=== PATIENT | female | born 1930 | race Caucasian/White ===

== ENCOUNTER → 2018-09-12 | Outpatient (CLI) | payer MEDICARE, OTHER ==
--- NOTE | 2018-09-12 09:55 | BD ---
EXAMINATION TYPE: Axial Bone Density DATE OF EXAM: 09/12/2018 COMPARISON: 10/04/2015 CLINICAL HISTORY: Postmenopausal female. Osteoporosis screening. Height: 57 IN Weight: 181 LBS FRAX RISK QUESTIONS: Secondary Osteoporosis: 2. Hyperthyroidism: YES RISK FACTORS HISTORY OF: Surgery to Hip(KHOA): When: APPROX AGE 58 Active: LIMITED Diet low in dairy products/other sources of calcium: YES Postmenopausal woman: AGE 55 Lost more than 2 inches in height since high school: YES 5" MEDICATIONS: Thyroid Medications: YES Which medication: Synthroid How Lon+ YEARS Additional Medications: SYNTHROID Additional History: BREAST CANCER EXAM MEASUREMENTS: Bone mineral densitometry was performed using the [employer] System. Bone mineral density as measured about the Lumbar spine is: ----- L1-L4(G/cm2): 1.309 T Score Values are as follows: ----- L2: 1.8 ----- L3: 1.5 ----- L4: -0.7 ----- L1-L4: 1.1 Bone mineral density has: Increased 2.4% since study of: 10/04/2015 Bone mineral density about the L Wrist (g/cm2): 0.461 T Score values are as follows: -----Dist. R+U: -4.7 -----Prox. 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 There is increased fracture risk and therapy is usually indicated based on age. Re-Screen 1-2 years. NOTE: T-SCORE=SD OF THE YOUNG ADULT MEAN.
--- NOTE | 2018-09-13 11:14 | MM ---
Reason for exam: additional evaluation requested from prior study. Last mammogram was performed 2 years and 7 months ago. History: Patient is postmenopausal and has history of breast cancer at age 84. Family history of premenopausal breast cancer in mother and premenopausal breast cancer in daughter. Lumpectomy of the right breast, July 19, 2014. Malignant US biopsy breast VAD RT of the right breast, July 10, 2014. Radiation therapy of the right breast, 2014. Benign stereotactic core biopsy of the right breast, September 22, 2002. Core biopsy of the right breast. Excisional biopsy of the left breast. Taking antineoplastic beginning at age 84. Physical Findings: Nurse did not find any significant physical abnormalities on exam. MG 3D Diag Mammo W/Cad KHOA Bilateral CC and MLO view(s) were taken. Prior study comparison: February 25, 2016, bilateral MG 3d diag mammo w/cad KHOA. August 19, 2015, right breast MG 3d diag mammo w/cad RT. The breast tissue is heterogeneously dense. This may lower the sensitivity of mammography. Benign appearing bilateral calcifications. Post therapy change on the right. No significant new findings when compared with previous films. These results were verbally communicated with the patient and result sheet given to the patient on 09/12/18. ASSESSMENT: Benign, BI-RAD 2 RECOMMENDATION: Follow-up diagnostic mammogram of both breasts in 1 year.
== END ==
LOC: RADMAMWWP 07:52
PROVIDERS: ATTEND Internal Medicine Hematology & Oncology
DX: Z08 Encounter for follow-up examination after completed treatment for malignant neoplasm (principal); M81.0 Age-related osteoporosis without current pathological fracture; N95.1 Menopausal and female climacteric states; Z85.3 Personal history of malignant neoplasm of breast
CPT/HCPCS: 77080; 77066; G0279; 77062

== ENCOUNTER 2018-11-12 13:01 | Emergency (ER) | payer MEDICARE, OTHER ==
[2018-11-12 13:30] VITALS: BP 125/68; PULSE 65; RESP 18; TEMP 97.7
--- NOTE | 2018-11-12 14:27 | ED ---
General Adult HPI - General Chief complaint: Wound/Laceration Stated complaint: wound on lt leg Time Seen by Provider: 11/12/18 14:05 Source: patient Mode of arrival: ambulatory Limitations: no limitations - History of Present Illness Initial comments: Patient is an 88-year-old female presenting to the emergency department with her daughter for a chief complaint of a bleeding from her leg. Patient reports she noticed bleeding from one of her varicose veins on her left leg earlier today. Patient reports the bleeding has since stopped. Patient is not on blood thinners. Patient denies any trauma to the region. Patient does not wear any compression sex. Patient denies any pain or limited range of motion. Patient denies any edema, erythema or skin discoloration. Patient denies taking any medication to alleviate the symptoms. - Related Data Home Medications Medication Instructions Recorded Confirmed Cholecalciferol [Vitamin D3 (25 1,000 unit PO DAILY@1200 07/18/14 07/19/14 Mcg = 1000 Iu)] Levothyroxine Sodium [Synthroid] 112 mcg PO DAILY 07/18/14 07/19/14 Previous Rx's Medication Instructions Recorded Acetaminophen with Codeine 1 each PO Q6H #20 tab 07/20/14 [Tylenol w/codeine #3] Allergies Allergy/AdvReac Type Severity Reaction Status Date / Time No Known Allergies Allergy Verified 07/19/14 16:11 Review of Systems ROS Statement: Those systems with pertinent positive or pertinent negative responses have been documented in the HPI. ROS Other: All systems not noted in ROS Statement are negative. Past Medical History Past Medical History: Cancer, Osteoarthritis (OA), Thyroid Disorder Additional Past Medical History / Comment(s): recent dx. breast cancer History of Any Multi-Drug Resistant Organisms: None Reported Past Surgical History: Joint Replacement Additional Past Surgical History / Comment(s): both hips replaced, cataract surg. Past Anesthesia/Blood Transfusion Reactions: No Reported Reaction Past Psychological History: No Psychological Hx Reported Smoking Status: Never smoker Past Alcohol Use History: None Reported Past Drug Use History: None Reported - Past Family History Daughter(s) Family Medical History: Cancer Mother Family Medical History: Cancer General Exam Limitations: no limitations General appearance: alert, in no apparent distress Head exam: Present: atraumatic, normocephalic, normal inspection Eye exam: Present: normal appearance, PERRL, EOMI Pupils: Present: normal accommodation ENT exam: Present: normal exam, mucous membranes moist, TM's normal bilaterally, normal external ear exam Neck exam: Present: normal inspection, full ROM Respiratory exam: Present: normal lung sounds bilaterally Cardiovascular Exam: Present: regular rate, normal rhythm, normal heart sounds Extremities exam: Present: full ROM. Absent: normal inspection (Bleeding varicose vein on the left leg), tenderness Back exam: Present: normal inspection, full ROM Neurological exam: Present: alert, oriented X3 Psychiatric exam: Present: normal affect, normal mood Skin exam: Present: warm, intact, normal color Course Vital Signs 11/12/18 13:25 Temperature 97.7 F Pulse Rate 65 Respiratory 18 Rate Blood Pressure 125/68 O2 Sat by Pulse 97 Oximetry Medical Decision Making - Medical Decision Making Patient is an 88-year-old female presenting to emergency Department with a chief complaint of bleeding on her leg. Based on physical examination the bleeding appears to be from a varicose vein. 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 Patient advised to keep legs elevated multiple times throughout the day for 10-15 minutes. Patient advised to wear compression stockings. Patient advised to follow-up with primary care. Strict return parameters were thoroughly discussed the patient was agreeable. Case discussed with physician. Disposition Clinical Impression: Bleeding from varicose veins of left lower extremity Disposition: HOME SELF-CARE Condition: Stable Instructions (If sedation given, give patient instructions): Venous Insufficiency (DC) Additional Instructions: Please follow up with primary care. Please apply warm compresses and wear compression stockings. Elevate your legs multiple times throughout the day. Please return to emergency department if symptoms worsen. Is patient prescribed a controlled substance at d/c from ED?: No Referrals: None,Stated [Primary Care Provider] - 1-2 days Time of Disposition: 14:26
== END 2018-11-12 14:34 | disposition home or self-care (01) ==
LOC: EC 13:01
DX: I83.892 Varicose veins of left lower extremity with other complications (principal); I83.91 Asymptomatic varicose veins of right lower extremity; E07.9 Disorder of thyroid, unspecified; Z79.890 Hormone replacement therapy; Z85.3 Personal history of malignant neoplasm of breast; Z96.643 Presence of artificial hip joint, bilateral
CPT/HCPCS: 99282

== ENCOUNTER 2019-01-21 18:52 | Observation (INO) | payer MEDICARE, OTHER ==
--- NOTE | 2019-01-21 19:20 | ED ---
General Adult HPI - General Chief complaint: Skin/Abscess/Foreign Body Stated complaint: Food stuck in throat Time Seen by Provider: 01/21/19 19:20 Source: patient, family Mode of arrival: wheelchair Limitations: physical limitation - History of Present Illness Initial comments: Denisha is a pleasant 68-year-old female who presents the emergency department today with concern that she has a piece of pork stuck in her throat. Patient states that she was having pork for supper between 6 and 6:30 PM, she states that she cut it up into small pieces but still feels that it is in her throat. She states she's tried drinking water with no relief. She cannot tolerate her own secretions this time. Patient states she's had similar events like this in the past always been able to pass it on her own she's never had to come the hospital she's never had endoscopy. - Related Data Home Medications Medication Instructions Recorded Confirmed Anastrozole 1 mg PO DAILY 01/21/19 01/21/19 Levothyroxine Sodium [Synthroid] 100 mcg PO DAILY 01/21/19 01/21/19 Allergies Allergy/AdvReac Type Severity Reaction Status Date / Time No Known Allergies Allergy Verified 01/21/19 20:38 Review of Systems ROS Statement: Those systems with pertinent positive or pertinent negative responses have been documented in the HPI. ROS Other: All systems not noted in ROS Statement are negative. Past Medical History Past Medical History: Cancer, Osteoarthritis (OA), Thyroid Disorder Additional Past Medical History / Comment(s): recent dx. breast cancer History of Any Multi-Drug Resistant Organisms: None Reported Past Surgical History: Joint Replacement Additional Past Surgical History / Comment(s): both hips replaced, cataract surg. Past Anesthesia/Blood Transfusion Reactions: No Reported Reaction Past Psychological History: No Psychological Hx Reported Smoking Status: Never smoker Past Alcohol Use History: None Reported Past Drug Use History: None Reported - Past Family History Daughter(s) Family Medical History: Cancer Mother Family Medical History: Cancer General Exam - General Exam Comments Initial Comments: Physical Exam GENERAL: Patient sitting up in bed spitting into a bowl. Appears uncomfortable Patient is well-developed and well-nourished HENT: Normocephalic, Atraumatic. EYES: PERRL, EOMI PULMONARY: Unlabored respirations. No audible rales rhonchi or wheezing was noted. CARDIOVASCULAR: There is a regular rate and rhythm without any murmurs gallops or rubs. ABDOMEN: Soft and nontender with normal bowel sounds. SKIN: Skin is clear with no lesions or rashes and otherwise unremarkable. : Deferred NEUROLOGIC: Patient is alert and oriented x3. Moving all extremities spontaneously MUSCULOSKELETAL: Normal extremities with adequate strength and full range of motion. No lower extremity swelling or edema. No calf tenderness. PSYCHIATRIC: Normal psychiatric evaluation. Limitations: physical limitation Course Vital Signs 01/21/19 01/21/19 19:11 22:52 Temperature 98.3 F 98 F Pulse Rate 71 75 Respiratory 18 18 Rate Blood Pressure 128/65 149/79 O2 Sat by Pulse 98 98 Oximetry Medical Decision Making - Medical Decision Making The patient was seen and evaluated history is obtained from patient and signed patient was eating pork when she felt like a piece got stuck in her throat, since that time she's not been able tolerate any oral intake, oral secretions She's been trying to support her for approximately 90 minutes prior to arrival but continues to spit out IV glucagon was given patient was encouraged to drink warm water with glucagon but was unable to tolerate it Patient care was discussed with GI is consultant Dr. Collazo who is unavailable for endoscopy tonight recommend supportive care will evaluate the patient morning She care was discussed the patient's primary care physician Dr. Zuñiga who agrees with plan for observation with evaluation by gastroenterology in the morning. Patient declined narcotic pain medication as well as Zofran and anxiolytics were ordered for comfort. Disposition Clinical Impression: Food impaction of esophagus Disposition: ADMITTED IP TO THIS HOSP Condition: Stable Referrals: Abdirahman Zuñiga MD [Primary Care Provider] - 1-2 days
[2019-01-21] MEDS ORDERED: GLUCAGON 1 MG/ML VIAL IVP STA (19:56)
[2019-01-21] MEDS: SODIUM CHLORIDE 0.9% 1,000 ML IV SCH (20:27)
[2019-01-21] MEDS ORDERED: MORPHINE SULFATE 4 MG/ML SYRINGE IVP STA (21:51)
[2019-01-21] MEDS ORDERED: SODIUM CHLORIDE 0.9% 1,000 ML IV SCH (22:00)
--- NOTE | 2019-01-21 22:05 | XR ---
EXAMINATION TYPE: XR chest 2V DATE OF EXAM: 01/21/2019 COMPARISON: NONE HISTORY: Difficulty swallowing TECHNIQUE: Frontal and lateral views of the chest are obtained. FINDINGS: There is some right middle lobe scarring and atelectasis. There is no heart failure. Heart size is normal. There is no pleural effusion. There are some ankylotic changes in the thoracic spine . IMPRESSION: Right middle lobe scarring and atelectasis. No heart failure.
[2019-01-21] MEDS ORDERED: ONDANSETRON 4 MG/2 ML VIAL IVP PRN (23:44)
[2019-01-21] MEDS ORDERED: LORazepam 2 MG/ML INJ IV PRN (23:44)
[2019-01-21] MEDS ORDERED: NALOXONE 0.4 MG/ML 1 ML VIAL IV PRN (23:44)
[2019-01-22] MEDS: SODIUM CHLORIDE 0.9% 1,000 ML IV SCH ×2 (05:50→16:42)
[2019-01-22] MEDS ORDERED: ACETAMINOPHEN TAB 325 MG TAB PO PRN (11:26)
--- NOTE | 2019-01-22 11:31 | P.HPIM ---
History of Present Illness H&P Date: 01/22/19 This is an 88-year-old female patient who presented with complaints of a piece of pork stuck in her throat. Patient reports that she was having dinner around 09[birth year]15/1929 when she had a piece of pork get stuck in her throat. Patient tried to drink water without any relief. Patient reports that is difficult breathing at that time. Patient reports that she still feels like there something in her throat but not having as much distress in breathing. Patient reports that she usually will have soft foods due to her dentures. Patient reports she's never had this issue before. Patient does have past medical history of breast cancer, hyperthyroidism and osteoarthritis. Patient does live independently. Patient's [id number] and son at bedside. Chest x-ray was completed showing right middle lobe scarring and atelectasis. No heart failure. GI services have been consulted. Planning EGD today. Patient denies chest pain. Patient denies nausea vomiting diarrhea. Patient denies any urinary burning or frequency. Review of Systems Please refer to HPI otherwise unremarkable Past Medical History Past Medical History: Cancer, Osteoarthritis (OA), Thyroid Disorder Additional Past Medical History / Comment(s): breast cancer History of Any Multi-Drug Resistant Organisms: None Reported Past Surgical History: Joint Replacement Additional Past Surgical History / Comment(s): both hips replaced, cataract surg. Past Anesthesia/Blood Transfusion Reactions: No Reported Reaction Past Psychological History: No Psychological Hx Reported Smoking Status: Never smoker Past Alcohol Use History: None Reported Past Drug Use History: None Reported - Past Family History Daughter(s) Family Medical History: Cancer Mother Family Medical History: Cancer Medications and Allergies Home Medications Medication Instructions Recorded Confirmed Type Anastrozole 1 mg PO DAILY 01/21/19 01/21/19 History Levothyroxine Sodium [Synthroid] 100 mcg PO DAILY 01/21/19 01/21/19 History Allergies Allergy/AdvReac Type Severity Reaction Status Date / Time No Known Allergies Allergy Verified 01/21/19 20:38 Physical Exam Vitals: Vital Signs Temp Pulse Pulse Resp BP BP Pulse Ox 01/22/19 09:42 98.4 F 85 16 134/64 96 01/22/19 05:32 98.4 F 85 16 134/64 96 01/22/19 00:35 97.9 F 81 16 151/71 97 01/22/19 00:30 81 16 01/21/19 22:52 98 F 75 18 149/79 98 01/21/19 19:11 98.3 F 71 18 128/65 98 Intake and Output 01/21/19 01/22/19 01/22/19 22:59 06:59 14:59 Other: # Voids 1 Weight 81.647 kg Head normocephalic Neck supple Lungs clear to auscultation bilaterally no wheezing or crackles Heart regular rate and rhythm S1-S2, no rub or gallop Abdomen is soft nontender nondistended positive bowel sounds no hepatosplenomegaly Extremities no edema Neuro alert and orientated to 3 Thrombosis Risk Factor Assmnt - Choose All That Apply Any of the Below Risk Factors Present?: Yes Each Factor Represents 1 point: Obesity (BMI >25) Other Risk Factors: Yes Each Risk Factor Represents 3 Points: Age 75 years or older Other congenital or acquired thrombophilia - If yes, enter type in comment: No Thrombosis Risk Factor Assessment Total Risk Factor Score: 4 Thrombosis Risk Factor Assessment Level: Moderate Risk Assessment and Plan Assessment: 1. Esophageal food bolus. GI services have been consulted. Planning EGD today. Chest is completed showing no acute pulmonary process. 2. History of breast cancer. Greater than 5 years ago. Patient is maintained on an anastrozole. 3. History of hypothyroidism. Patient obtained on Synthroid 4. Osteoarthritis with bilateral hip replacements DVT prophylaxis Protonix. GI prophylaxis heparin Time with Patient: Greater than 30 (Greater than 60% of the total time spent in counseling and coordination of care. I performed an examination of the patient and discussed their management with the Nurse Practitioner. I have reviewed the Nurse Practitioner's notes and agree with the documented findings and plan of care)
[2019-01-22 11:44] LABS: Albumin 3.3 g/dL (3.5-5.0); Calcium 8.2 mg/dL (8.4-10.2); Potassium 4.4 mmol/L (3.5-5.1); Total Protein 6.3 g/dL (6.3-8.2)
[2019-01-22 11:52] LABS: Basophils % (A) 0 %; Eosinophils % (A) 0 %; HCT 35.2 % (34.0-46.0); HGB 11.3 gm/dL (11.4-16.0); Lymphocytes # (A) 0.9 k/uL (1.0-4.8); Lymphocytes % (A) 9 %; MCH 30.2 pg (25.0-35.0); MCHC 32.1 g/dL (31.0-37.0); MCV 94.1 fL (80.0-100.0); Mean Platelet Volume 6.1; Monocytes # (A) 0.6 k/uL (0-1.0); Monocytes % (A) 6 %; Neutrophils # (A) 8.5 k/uL (1.3-7.7); Neutrophils % (A) 84 %; Platelet Count 150 k/uL (150-450); RBC 3.75 m/uL (3.80-5.40); RDW 13.1 % (11.5-15.5); WBC 10.1 k/uL (3.8-10.6)
[2019-01-22] MEDS ORDERED: PROPOFOL 10 MG/ML 20 ML VIAL IV ONE (12:36)
[2019-01-22] MEDS ORDERED: LACTATED RINGERS 1,000 ML IV ONE (12:43)
--- NOTE | 2019-01-22 12:54 | P.PCN ---
Date of Procedure: 01/22/19 Procedure(s) Performed: BRIEF HISTORY: Patient is a []-year-old, pleasant, white female, admitted hospital last night with acute food dysphagia. She is scheduled for an upper endoscopy with foreign body removal. PROCEDURE PERFORMED: Esophagogastroduodenoscopy with biopsy and foreign body removal. PREOPERATIVE DIAGNOSIS: Acute for dysphagia. IV sedation per anesthesia. PROCEDURE: After informed consent was obtained, the patient was brought into the endoscopy unit. IV sedation was administered by Anesthesia under continuous monitoring. Initially the Olympus GIF-140 video endoscope was inserted into the mouth. Esophagus intubated without any difficulty. It was gradually advanced into the distal esophagus and there was a food bolus impaction noted. Gently the scope was able to push the food bolus into the stomach and duodenum and carefully examined. The bulb and the second part of the duodenum appeared normal. The scope at this time was withdrawn to the stomach, adequately insufflated with air, and upon careful examination, mucosa of the antrum, body, cardia and the fundus appeared normal. The scope was then withdrawn into the esophagus. The GE junction was located at 37 cm from the incisors. Small sliding Hiatal hernia noted. There was long segment of Jiménez's esophagus extending from 30-37 cm from the incisors and multiple biopsies were done from this area to rule out dysplasia. There was esophageal suture identified at 30 cm from the incisors with some erosions identified consistent with severe reflux esophagitis. The rest of the esophagus appeared normal and the patient tolerated the procedure well. IMPRESSION: 1. Distal esophageal food impaction status post removal as described above. 2. 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 Small hiatal hernia. RECOMMENDATIONS: The findings of this examination were discussed with the patien t as well as her family. She'll be started on a soft diet. Prilosec 20 mg twice daily. Follow up in office in 2 weeks. Base of the symptoms she may need an elective EGD with dilation in the near future.
--- NOTE | 2019-01-22 18:01 | CONS ---
CONSULTATION DATE OF DICTATION: 01/22/2019. REASON FOR CONSULTATION: Acute food dysphagia. HISTORY OF PRESENT ILLNESS: The patient is a 68-year-old pleasant white female in the emergency room last night complaining of the piece of meat that was stuck in her throat since dinner last evening, the patient was able to handle her secretions except that she has been spitting out on off. She was admitted to the hospital overnight for observation. This morning, she feels somewhat better, but still unable to clear her secretions very well. She feels that her food is still stuck in her throat area. She never had these symptoms in the past. She has been having intermittent dysphagia to solids on and off and she slowly for the last 15 years. Never had any endoscopy intervention in the past. She denies any heartburn. Reports no odynophagia. PAST MEDICAL HISTORY: Significant for breast cancer diagnosed several years ago and hypothyroidism. MEDICATIONS: At home: and levothyroxine. ALLERGIES: None. SOCIAL HISTORY: No smoking. No alcohol use. FAMILY HISTORY: Unremarkable. PAST SURGICAL HISTORY: Breast lumpectomy, bilateral cataract surgery and both hips replacement. FAMILY HISTORY: Daughter has some kind of cancer. REVIEW OF SYSTEMS: CARDIOPULMONARY: No chest pain, shortness of breath. no dysuria or hematuria. MUSCULOSKELETAL unremarkable. SKIN unremarkable. ENDOCRINE unremarkable. PSYCHIATRIC unremarkable. NEUROLOGY unremarkable. ENT/vision unremarkable. CONSTITUTIONAL: No recent weight loss. No fever, chills, night sweats. PHYSICAL EXAMINATION: Blood pressure is 149/79, pulse rate 85, temperature 98.4. HEENT examination unremarkable. Conjunctivae pink. Sclerae anicteric. Oral cavity no lesions. NECK: No JVD or lymph node enlargement. CHEST was clear to auscultation. HEART: Regular rate and rhythm. ABDOMEN: Soft. Bowel sounds are positive. No organomegaly. EXTREMITIES: No pedal edema. SKIN no rashes. NEUROLOGIC: Alert and oriented x3. No focal deficits. LAB: No labs available at the time of dictation. IMPRESSION: 1. Acute food impaction. The patient ate pork for dinner last night and has a piece of meat bolus impacted in her esophagus. She was admitted to the hospital for observation. She feels better but not able to swallow her saliva well, but looks comfortable. Never had these symptoms in the past. However, she has been having intermittent dysphagia to solids with no endoscopy intervention needed in the past. 2. Hypothyroidism. RECOMMENDATIONS: We will proceed with an EGD this morning with possible dilation. I discussed with them the risks, benefits, and complications of the procedure and the patient and family are agreeable to it. Thank you for this consultation. JULES / IJN: [id number] /
[2019-01-22] MEDS: HEPARIN SODIUM,PORCINE 5,000 UNIT/ML 1 ML VIAL SQ SCH (21:21)
[2019-01-23 04:25] VITALS: BP 139/74; PULSE 65; RESP 16; TEMP 98.3
[2019-01-23] MEDS: SODIUM CHLORIDE 0.9% 1,000 ML IV SCH (06:15)
[2019-01-23] MEDS ORDERED: LEVOTHYROXINE 100 MCG TAB PO SCH (06:30)
[2019-01-23] MEDS ORDERED: PANTOPRAZOLE 40 MG TABLET PO SCH (07:30)
[2019-01-23 07:53] LABS: Basophils % (A) 0 %; Eosinophils # (A) 0.2 k/uL (0-0.7); Eosinophils % (A) 2 %; HCT 35.4 % (34.0-46.0); HGB 11.2 gm/dL (11.4-16.0); Hypochromasia Slight; Lymphocytes # (A) 2.1 k/uL (1.0-4.8); Lymphocytes % (A) 30 %; MCHC 31.6 g/dL (31.0-37.0); Mean Platelet Volume 6.2; Monocytes # (A) 0.3 k/uL (0-1.0); Monocytes % (A) 4 %; Neutrophils # (A) 4.3 k/uL (1.3-7.7); Neutrophils % (A) 62 %; Platelet Count 156 k/uL (150-450); RBC 3.73 m/uL (3.80-5.40); RDW 13.3 % (11.5-15.5); WBC 6.9 k/uL (3.8-10.6)
[2019-01-23 08:05] LABS: Albumin 3.4 g/dL (3.5-5.0); Potassium 4.4 mmol/L (3.5-5.1); Total Bilirubin 1.2 mg/dL (0.2-1.3); Total Protein 6.4 g/dL (6.3-8.2)
[2019-01-23] MEDS: HEPARIN SODIUM,PORCINE 5,000 UNIT/ML 1 ML VIAL SQ SCH (08:06)
[2019-01-23] MEDS ORDERED: ANASTROZOLE 1 MG TAB PO SCH (09:00)
--- NOTE | 2019-01-23 10:52 | P.DS ---
Providers Date of admission: 01/21/19 23:44 Expected date of discharge: 01/23/19 Attending physician: Abdirahman Zuñiga Consults: 01/21/19 23:44 Consult Physician Stat Consulting Provider: Shahla Collazo Consult Reason/Comments: esophageal food bolus Do you want consulting provider notified?: Already Contacted Primary care physician: Abdirahman Zara [facility] Course: Discharge diagnosis 1. Esophageal food bolus. GI services have been consulted. Planning EGD today. Chest is completed showing no acute pulmonary process. Status post EGD with Dr. Newton. Finding showing distal esophageal food impaction status post removal. Distal esophageal stricture, long segment Jiménez's esophagus small hiatal hernia. Per GI services continue Prilosec 20 mg twice daily and follow- up in office in 2 weeks. Patient may require an elective EGD with dilation in the future per GI services. 2. History of breast cancer. Greater than 5 years ago. Patient is maintained on an anastrozole. 3. History of hypothyroidism. Patient obtained on Synthroid 4. Osteoarthritis with bilateral hip replacements Hospital course This is an 88-year-old female patient who presented with complaints of a piece of pork stuck in her throat. Patient reports that she was having dinner around 09/15/1929 when she had a piece of pork get stuck in her throat. Patient tried to drink water without any relief. Patient reports that is difficult breathing at that time. Patient reports that she still feels like there something in her throat but not having as much distress in breathing. Patient reports that she usually will have soft foods due to her dentures. Patient reports she's never had this issue before. Patient does have past medical history of breast cancer, hyperthyroidism and osteoarthritis. Patient does live independently. Patient's [id number] and son at bedside. Chest x-ray was completed showing right middle lobe scarring and atelectasis. No heart failure. GI services have been consulted. Planning EGD today. Patient denies chest pain. Patient denies nausea vomiting diarrhea. Patient denies any urinary burning or frequency. On 01/23/2019 patient is alert and oriented 3. Patient has been afebrile. No signs of coughing. Patient has been tolerating diet and liquids without coughing. Patient feels much improved and ready to go home. Patient denies chest pain or shortness of breath. Patient denies nausea vomiting or diarrhea. Patient denies any urinary burning or frequency. I performed an examination of the patient and discussed their management with the Nurse Practitioner. I have reviewed the Nurse Practitioner's notes and agree with the documented findings and plan of care Patient Condition at Discharge: Stable Plan - Discharge Summary New Discharge Prescriptions: New Omeprazole [PriLOSEC] 20 mg PO AC-BID 30 Days #60 cap Continue Levothyroxine Sodium [Synthroid] 100 mcg PO DAILY Anastrozole 1 mg PO DAILY Discharge Medication List Anastrozole 1 mg PO DAILY 01/21/19 [History] Levothyroxine Sodium [Synthroid] 100 mcg PO DAILY 01/21/19 [History] Omeprazole [PriLOSEC] 20 mg PO AC-BID 30 Days #60 cap 01/23/19 [Rx] Follow up Appointment(s)/Referral(s): Abdirahman Zuñiga MD [Primary Care Provider] - 1-2 days Shahla Collazo MD [STAFF PHYSICIAN] - 1 Week Activity/Diet/Wound Care/Special Instructions: Activity as tolerated Regular diet soft foods chopped meats Discharge Disposition: HOME SELF-CARE
--- NOTE | 2019-01-23 14:34 | PN ---
PROGRESS NOTE DATE OF SERVICE: 01/23/2019 REQUESTING PHYSICIAN: Dr. Zuñiga. Patient is an 88-year-old pleasant white female admitted to the hospital yesterday for dysphagia and underwent an upper endoscopy that revealed an impaction in the distal esophagus that was removed. She was also noted to have severe reflux esophagitis, esophageal stricture, and Jiménez's esophagus that was biopsied. She is on Protonix 40 mg twice daily. She is doing much better today, able to tolerate soft diet well. She has been having intermittent dysphagia with solids on and off for the last 15 years' duration. PHYSICAL EXAMINATION: Appears comfortable, in no apparent distress. VITAL SIGNS: Stable, blood pressure is 139/74, pulse rate is 65, temperature 98. HEENT: Examination unremarkable, conjunctivae are pink. Sclerae nonicteric. Oral cavity no lesions. NECK: No JVD or lymph node enlargement. CHEST: Clear to auscultation. HEART: Regular rate and rhythm. ABDOMEN: Soft. Bowel sounds are positive. No organomegaly. EXTREMITIES: No pedal edema. SKIN: No rashes. NEUROLOGIC: Alert and oriented x3. No focal deficits. LABS: WBC 6.9, hemoglobin 11.2, platelets are normal. Basic metabolic panel showed BUN of 19 and creatinine 1.19. IMPRESSION: Intermittent dysphagia to solids of several years duration with an episode of acute food impaction, status post EGD with foreign body removal yesterday. She was noted to have a esophageal stricture/Jiménez's esophagus and severe reflux esophagitis on Protonix 40 mg twice daily, doing well RECOMMENDATION: 1. Continue with Protonix 40 mg twice daily. 2. Await biopsy results. 3. Follow up in the office in 2-3 weeks and based on her symptoms, will plan on upper endoscopy with possible dilation on an active basis. The plan was discussed with the patient. Thank you for this consultation. MMODL / IJN: [id number] /
== END 2019-01-23 13:20 | disposition home or self-care (01) ==
LOC: EC 18:52 → 3NMEDONC 23:44
PROVIDERS: ADMIT Internal Medicine; ATTEND Internal Medicine
DX: T18.128A Food in esophagus causing other injury, initial encounter (principal); K44.9 Diaphragmatic hernia without obstruction or gangrene; K22.70 Barrett's esophagus without dysplasia; K22.2 Esophageal obstruction; Z85.3 Personal history of malignant neoplasm of breast; E03.9 Hypothyroidism, unspecified; Z96.643 Presence of artificial hip joint, bilateral; M19.90 Unspecified osteoarthritis, unspecified site; K21.0 Gastro-esophageal reflux disease with esophagitis; Z79.811 Long term (current) use of aromatase inhibitors; Z79.890 Hormone replacement therapy; E66.9 Obesity, unspecified; Z68.35 Body mass index [BMI] 35.0-35.9, adult; Z80.9 Family history of malignant neoplasm, unspecified
CPT/HCPCS: 96361 ×2; 96372 ×2; 96374; 99284; 97161; 97166; 88305; 80053 ×2; 85025 ×2; 71046; 43239; 43247; G0378 ×3; J1610; J1644 ×2; S0170; J2704

== ENCOUNTER → 2019-10-09 | Outpatient (CLI) | payer MEDICARE, OTHER ==
--- NOTE | 2019-10-10 07:41 | MM ---
Reason for exam: additional evaluation requested from prior study. Last mammogram was performed 1 year and 1 month ago. History: Patient is postmenopausal and has history of breast cancer at age 84. Family history of premenopausal breast cancer in mother and premenopausal breast cancer in daughter. Lumpectomy of the right breast, July 19, 2014. Malignant US biopsy breast VAD RT of the right breast, July 10, 2014. Radiation therapy of the right breast, 2014. Benign stereotactic core biopsy of the right breast, September 22, 2002. Core biopsy of the right breast. Excisional biopsy of the left breast. Taking antineoplastic beginning at age 84. Physical Findings: Nurse did not find any significant physical abnormalities on exam. MG 3D Diag Mammo W/Cad KHOA Bilateral CC and MLO view(s) were taken. Prior study comparison: September 12, 2018, bilateral MG 3d diag mammo w/cad KHOA. February 25, 2016, bilateral MG 3d diag mammo w/cad KHOA. The breast tissue is heterogeneously dense. This may lower the sensitivity of mammography. Post surgical and post therapy changes right breast. Stable scatered groups of calcifications bilaterally. No significant new findings when compared with previous films. These results were verbally communicated with the patient and result sheet given to the patient on 10/09/19. ASSESSMENT: Benign, BI-RAD 2 RECOMMENDATION: Follow-up diagnostic mammogram of both breasts in 1 year.
== END | disposition home or self-care (01) ==
LOC: RADMAMWWP 13:26
PROVIDERS: ATTEND Internal Medicine Hematology & Oncology
DX: Z08 Encounter for follow-up examination after completed treatment for malignant neoplasm (principal); Z85.3 Personal history of malignant neoplasm of breast
CPT/HCPCS: 77066; G0279; 77062

== ENCOUNTER → 2020-09-17 | Outpatient (CLI) | payer MEDICARE, OTHER ==
--- NOTE | 2020-09-17 16:00 | BD ---
EXAMINATION TYPE: Axial Bone Density DATE OF EXAM: 09/17/2020 COMPARISON: NONE CLINICAL HISTORY: Height: 4 FT 9 IN Weight: 181 FRAX RISK QUESTIONS: Alcohol (3 or more units per day): NO Family History (Parent hip fracture): NO Glucocorticoids (More than 3mos): NO (Ex: prednisone, prednisolone, methylprednisolone, dexamethasone, and hydrocortisone). History of Fracture in Adulthood: NO Secondary Osteoporosis: 1. Type 1 Diabetes: NO 2. Hyperthyroidism: NO 3. Menopause before 45: NO 4. Malnutrition: NO 5. Chronic liver disease: NO Rheumatoid Arthritis: NO Current Tobacco Use: NO RISK FACTORS HISTORY OF: Surgery to Spine/Hip(right/left)/Wrist (right/left): KHOA HIP REPLACEMENT When: YEARS AGO Family History of Osteoporosis: NO Active: NO Diet low in dairy products/other sources of calcium: NO Postmenopausal woman: AGE 55 Take estrogen and/or progesterone medications: NO Lost more than 2 inches in height since high school: YES MEDICATIONS: Additional Medications: NONE Additional History: EXAM MEASUREMENTS: Bone mineral densitometry was performed using the Hadapt System. Bone mineral density as measured about the Lumbar spine is: ----- L1-L4(G/cm2): WASNT ABLE TO DO LUMBAR PTS KYPHOSIS WILL NOT ALLOW HER TO LAY FLAT Bone mineral density about the R Wrist (g/cm2): 0.493 T Score values are as follows: -----Dist. R+U: -3.5 -----Prox. R+U: -2.3 -----Radius total: -3.1 Bone mineral density has: DECREASED -11.8 % since study of: 2013 IMPRESSION: Osteoporosis (T Score less than -2.5). There is increased fracture risk and therapy is usually indicated based on age. Re-Screen 1-2 years. NOTE: T-SCORE=SD OF THE YOUNG ADULT MEAN.
== END | disposition home or self-care (01) ==
LOC: RADBDWWP 14:17
PROVIDERS: ATTEND Internal Medicine Hematology & Oncology
DX: Z13.820 Encounter for screening for osteoporosis (principal); M81.0 Age-related osteoporosis without current pathological fracture; Z78.0 Asymptomatic menopausal state
CPT/HCPCS: 77080

== ENCOUNTER → 2020-10-21 | Outpatient (CLI) | payer MEDICARE, OTHER ==
--- NOTE | 2020-10-22 10:03 | MM ---
Reason for exam: additional evaluation requested from prior study. Last mammogram was performed 1 year ago. History: Patient is postmenopausal and has history of breast cancer at age 84. Family history of premenopausal breast cancer in mother and premenopausal breast cancer in daughter. Lumpectomy of the right breast, July 19, 2014. Malignant US biopsy breast VAD RT of the right breast, July 10, 2014. Radiation therapy of the right breast, 2014. Benign stereotactic core biopsy of the right breast, September 22, 2002. Core biopsy of the right breast. Excisional biopsy of the left breast. Taking antineoplastic beginning at age 84. Physical Findings: Nurse did not find any significant physical abnormalities on exam. MG 3D Diag Mammo W/Cad KHOA Bilateral CC and MLO view(s) were taken. Prior study comparison: October 09, 2019, bilateral MG 3d diag mammo w/cad KHOA. September 12, 2018, bilateral MG 3d diag mammo w/cad KHOA. There are scattered fibroglandular densities. Right post operative and biopsy clip. No change. These results were verbally communicated with the patient and result sheet given to the patient on 10/21/20. ASSESSMENT: Benign, BI-RAD 2 RECOMMENDATION: Follow-up diagnostic mammogram of both breasts in 1 year.
== END | disposition home or self-care (01) ==
LOC: RADMAMWWP 14:04
PROVIDERS: ATTEND Internal Medicine Hematology & Oncology
DX: R92.8 Other abnormal and inconclusive findings on diagnostic imaging of breast (principal); Z78.0 Asymptomatic menopausal state; Z80.3 Family history of malignant neoplasm of breast
CPT/HCPCS: 77066; G0279; 77062

== ENCOUNTER 2021-09-06 15:08 | Inpatient (IN) | payer MEDICARE, OTHER ==
--- NOTE | 2021-09-06 16:36 | ED ---
General Adult HPI - General Chief complaint: Extremity Injury, Lower Stated complaint: Rt Leg Pain/Swelling Time Seen by Provider: 09/06/21 16:14 Source: patient Mode of arrival: ambulatory Limitations: no limitations - History of Present Illness Initial comments: Dictation was produced using [employer] dictation software. please excuse any grammatical, word or spelling errors. Chief Complaint: 89-year-old female with past medical history of breast cancer, thyroid disease presents to the emergency department for severe right lower ext remity pain History of Present Illness: Patient is a 11-year-old female she is accompanied by 3 of her 4 children. Her one daughter who is visiting from [place] reports that over the last 3 days she's been complaining of severe right lower extremity pain. Patient currently resides at a assisted living facility. It was recommended by sister living facility staff to have patient brought to the ER for evaluation. Patient is a poor historian. She does have report that she has pain in her right hip and right knee. She denies any trauma to the area. She does have history of joint arthroplasty to both hips. Patient does not have any history of cardiac issues. She has no known history of bradycardia. The ROS documented in this emergency department record has been reviewed and confirmed by me. Those systems with pertinent positive or negative responses have been documented in the HPI. All other systems are other negative and/or noncontributory. PHYSICAL EXAM: General Impression: Alert and oriented x3, acute distress secondary to pain HEENT: Normocephalic atraumatic, extra-ocular movements intact, pupils equal and reactive to light bilaterally, mucous membranes moist. Cardiovascular: Heart regular rate and rhythm Chest: Able to complete full sentences, no retractions, no tachypnea Abdomen: abdomen soft, non-tender, non-distended, no organomegaly Musculoskeletal: Pulses present and equal in all extremities, no peripheral edema Right lower extremity slightly larger in girth compared to the left lower extremity, there is no temperature differences with light touch, there are no skin changes. Patient complains of severe pain with any sort of manipulation to the right lower extremity. Her joints are not swollen or erythematous Motor: no focal deficits noted Neurological: CN II-XII grossly intact, no focal motor or sensory deficits noted Skin: Intact with no visualized rashes Psych: Normal affect and mood ED course: 89-year-old female presents emergency department for right lower extremity pain. Pain is severe. She does have some swelling to the right lower extremity compared to the left but she does not have any signs of ischemia. Vital signs upon arrival shows bradycardia with a heart rate of 41, rest of vital signs within acceptable limits. Children at the bedside report that patient does not have a history of bradycardia. EKG interpretation: Ventricular rate 48, A. fib with slow ventricular response, QS 90, QTc 412. no QTC prolongation, no ST or T-wave changes noted. EKG was compared to 07/19/2014 and found to be comparable. He does not appear to be any consistent clearly discernible P waves. Spoke with on-call sales and marketing assistant, Dr. Elder at 6:00 PM. Case is discussed in detail with the sales and marketing assistant didn't have any recommendations at this time given that she is not expressing any symptoms bradycardia. She is here today for leg pain. She denies any shortness of breath, lightheadedness. Her blood pressure pressure has been stable. Evaluation obtained. CBC unremarkable. Sodium is 1:30. Slightly elevated gorge al markers P TSH is 58.6. Troponin is 0.013. Mitral lites are within acceptable limits. Bilateral hip and pelvis x-ray shows no acute processes. Knee x-ray shows moderate osteoarthritis bilaterally. Venous Doppler study shows this but no DVT. Patient be admitted to [facility]. Patient was given atropine with slight improvement of her heart rate. - Related Data Home Medications Medication Instructions Recorded Confirmed Levothyroxine Sodium [Synthroid] 100 mcg PO DAILY 01/21/19 09/06/21 Acetaminophen [Tylenol] 650 mg PO Q6H PRN 09/06/21 09/06/21 Calcium Lactate 100mg 1 tab PO DAILY 09/06/21 09/06/21 Donepezil [Aricept] 5 mg PO DAILY 09/06/21 09/06/21 Furosemide [Lasix] 20 mg PO MOTH 09/06/21 09/06/21 Omeprazole 20 mg PO DAILY 09/06/21 09/06/21 Zinc Oxide [Desitin] 1 applic TOPICAL BID 09/06/21 09/06/21 Allergies Allergy/AdvReac Type Severity Reaction Status Date / Time No Known Allergies Allergy Verified 09/06/21 17:24 Review of Systems ROS Statement: Those systems with pertinent positive or pertinent negative responses have been documented in the HPI. ROS Other: All systems not noted in ROS Statement are negative. Past Medical History Past Medical History: Cancer, Osteoarthritis (OA), Thyroid Disorder Additional Past Medical History / Comment(s): breast cancer History of Any Multi-Drug Resistant Organisms: None Reported Past Surgical History: Joint Replacement Additional Past Surgical History / Comment(s): both hips replaced, cataract surg. Past Anesthesia/Blood Transfusion Reactions: No Reported Reaction Past Psychological History: No Psychological Hx Reported Smoking Status: Never smoker Past Alcohol Use History: None Reported Past Drug Use History: None Reported - Past Family History Daughter(s) Family Medical History: Cancer Mother Family Medical History: Cancer General Exam Limitations: no limitations Course Vital Signs 09/06/21 09/06/21 09/06/21 15:26 17:59 18:05 Temperature 97.8 F Pulse Rate 41 L 42 L 71 Respiratory 18 16 16 Rate Blood Pressure 122/58 130/71 O2 Sat by Pulse 98 99 100 Oximetry Medical Decision Making - Lab Data Result diagrams: 09/06/21 16:40 09/06/21 16:40 Lab Results 09/06/21 09/06/21 09/06/21 Range/Units 16:40 16:40 16:40 WBC 6.6 (3.8-10.6) k/uL RBC 4.29 (3.80-5.40) m/uL Hgb 12.7 (11.4-16.0) gm/dL Hct 40.8 (34.0-46.0) % MCV 94.9 (80.0-100.0) fL MCH 29.6 (25.0-35.0) pg MCHC 31.2 (31.0-37.0) g/dL RDW 12.9 (11.5-15.5) % Plt Count 161 (150-450) k/uL MPV 7.3 Neutrophils % 63 % Lymphocytes % 27 % Monocytes % 6 % Eosinophils % 2 % Basophils % 1 % Neutrophils # 4.2 (1.3-7.7) k/uL Lymphocytes # 1.8 (1.0-4.8) k/uL Monocytes # 0.4 (0-1.0) k/uL Eosinophils # 0.1 (0-0.7) k/uL Basophils # 0.0 (0-0.2) k/uL Sodium 130 L (137-145) mmol/L Potassium 4.9 (3.5-5.1) mmol/L Chloride 95 L (98-107) mmol/L Carbon Dioxide 24 (22-30) mmol/L Anion Gap 11 mmol/L BUN 24 H (7-17) mg/dL Creatinine 1.60 H (0.52-1.04) mg/dL Est GFR (CKD-EPI)AfAm 33 (>60 ml/min/1.73 sqM) Est GFR (CKD-EPI)NonAf 28 (>60 ml/min/1.73 sqM) Glucose 110 H (74-99) mg/dL Calcium 8.8 (8.4-10.2) mg/dL Magnesium 1.9 (1.6-2.3) mg/dL Troponin I 0.013 (0.000-0.034) ng/mL TSH 58.600 H (0.465-4.680) mIU/L Critical Care Time Critical Care Time: Yes Total Critical Care Time: 33 Disposition Clinical Impression: Bradycardia, Leg pain Disposition: ADMITTED IP TO THIS [facility] Condition: Serious Referrals: GARY BENNETT MD [Primary Care Provider] - 1-2 days Decision Time: 18:30
[2021-09-06 16:50] LABS: Basophils % (A) 1 %; Eosinophils # (A) 0.1 k/uL (0-0.7); Eosinophils % (A) 2 %; HCT 40.8 % (34.0-46.0); HGB 12.7 gm/dL (11.4-16.0); Lymphocytes # (A) 1.8 k/uL (1.0-4.8); Lymphocytes % (A) 27 %; MCH 29.6 pg (25.0-35.0); MCHC 31.2 g/dL (31.0-37.0); MCV 94.9 fL (80.0-100.0); Mean Platelet Volume 7.3; Monocytes # (A) 0.4 k/uL (0-1.0); Monocytes % (A) 6 %; Neutrophils # (A) 4.2 k/uL (1.3-7.7); Neutrophils % (A) 63 %; Platelet Count 161 k/uL (150-450); RBC 4.29 m/uL (3.80-5.40); RDW 12.9 % (11.5-15.5); WBC 6.6 k/uL (3.8-10.6)
[2021-09-06 17:06] LABS: Calcium 8.8 mg/dL (8.4-10.2); Magnesium 1.9 mg/dL (1.6-2.3); Potassium 4.9 mmol/L (3.5-5.1)
--- NOTE | 2021-09-06 17:24 | XR ---
EXAMINATION TYPE: XR Hip Bilateral and AP pelvis DATE OF EXAM: 09/06/2021 COMPARISON: NONE HISTORY: Leg pain TECHNIQUE: 5 views FINDINGS: The pelvic ring appears intact. There is bilateral hip prosthesis. Components appear intact . No acute fracture seen. Sacroiliac joints are intact. IMPRESSION: No acute abnormality of the pelvis and both hips.
--- NOTE | 2021-09-06 17:26 | XR ---
EXAMINATION TYPE: XR knee complete bilateral DATE OF EXAM: 09/06/2021 COMPARISON: NONE HISTORY: Pain TECHNIQUE: 6 views FINDINGS: There is moderately severe narrowing of the medial joint spaces of both knees. There is ext ensive spurring of the medial femoral and tibial condyles. There is spurring at the patellofemoral arnulfo ints bilaterally. No joint effusion. No fracture seen. IMPRESSION: Moderately severe bilateral osteoarthritis as above. No fracture.
[2021-09-06] MEDS ORDERED: MORPHINE SULFATE 4 MG/ML SYRINGE IV STA (17:30)
[2021-09-06] MEDS ORDERED: HYDROmorphone 0.5 MG/0.5 ML SYRINGE IVP STA (17:53)
[2021-09-06] MEDS ORDERED: ATROPINE SULFATE 0.1 MG/ML 10ML SYRINGE IV STA (17:56)
[2021-09-06] MEDS ORDERED: HEPARIN SODIUM 1,000 UN/ML (10ML VL) IV ONE (18:02)
[2021-09-06] MEDS ORDERED: HEPARIN SODIUM 1,000 UN/ML (10ML VL) IV PRN (18:02)
--- NOTE | 2021-09-06 18:14 | US ---
EXAMINATION TYPE: US venous doppler duplex LE RT DATE OF EXAM: 09/06/2021 5:56 PM COMPARISON: NONE CLINICAL HISTORY: leg pain. Right leg pain SIDE PERFORMED: Right TECHNIQUE: The lower extremity deep venous system is examined utilizing real time linear array sonog sridhar with graded compression, doppler sonography and color-flow sonography. VESSELS IMAGED: Common Femoral Vein Deep Femoral Vein Greater Saphenous Vein * Femoral Vein Popliteal Vein Small Saphenous Vein * Proximal Calf Veins (* superficial vessels) Right Leg: Negative for DVT, unable to visualize proximal calf veins due to edema- possible Smith's Cyst right pop fossa= 4.2 x 0.7 x 2.5 cm IMPRESSION: No sign of deep vein thrombosis in the right leg. Popliteal cyst noted.
[2021-09-06] MEDS ORDERED: HEPARIN SOD,PORK IN 0.45% NACL 25,000 UNIT in 0.45% NACL 1 250ML.BAG IV SCH (18:15)
[2021-09-06] MEDS ORDERED: ACETAMINOPHEN TAB 325 MG TAB PO PRN (18:27)
[2021-09-06] MEDS ORDERED: NALOXONE 0.4 MG/ML 1 ML VIAL IV PRN (18:27)
[2021-09-06] MEDS ORDERED: HYDROmorphone 0.5 MG/0.5 ML SYRINGE IVP PRN (18:27)
[2021-09-06] MEDS: SODIUM CHLORIDE 0.9% 1,000 ML IV SCH (19:14)
[2021-09-06] MEDS: LEVOTHYROXINE IVP 100 MCG/5 ML VIAL IV SCH (19:46)
--- NOTE | 2021-09-07 02:35 | P.HPIM ---
History of Present Illness H&P Date: 09/06/21 Chief Complaint: Right leg pain 89-year-old female with hypothyroid Patient is a resident of assisted living facility over the past few days she's been complaining to get that she's having right leg pain she was brought in today to the hospital for elevation she has some slight swelling of the right leg compared to the left. No history of trauma or fall. Patient has dementia and provides no meaningful history. History was obtained by talking to her daughter. At the ED Doppler of right lower extremity showed no acute DVT. However EKG showed the cardia and rate controlled A. fib. She was admitted admitted for cardiology evaluation otherwise patient doesn't provide any history Blood work showed hyponatremia stable chronic kidney disease Elevated TSH and free T4 is pending Review of Systems ROS unobtainable: due to mental status Past Medical History Past Medical History: Cancer, Dementia, Osteoarthritis (OA), Thyroid Disorder Additional Past Medical History / Comment(s): breast cancer History of Any Multi-Drug Resistant Organisms: None Reported Past Surgical History: Joint Replacement Additional Past Surgical History / Comment(s): both hips replaced, cataract surg. Past Anesthesia/Blood Transfusion Reactions: No Reported Reaction Past Psychological History: No Psychological Hx Reported Smoking Status: Never smoker Past Alcohol Use History: None Reported Past Drug Use History: None Reported - Past Family History Daughter(s) Family Medical History: Cancer Mother Family Medical History: Cancer Medications and Allergies Home Medications Medication Instructions Recorded Confirmed Type Levothyroxine Sodium [Synthroid] 100 mcg PO DAILY 01/21/19 09/06/21 History Acetaminophen [Tylenol] 650 mg PO Q6H PRN 09/06/21 09/06/21 History Calcium Lactate 100mg 1 tab PO DAILY 09/06/21 09/06/21 History Donepezil [Aricept] 5 mg PO DAILY 09/06/21 09/06/21 History Furosemide [Lasix] 20 mg PO MOTH 09/06/21 09/06/21 History Omeprazole 20 mg PO DAILY 09/06/21 09/06/21 History Zinc Oxide [Desitin] 1 applic TOPICAL BID 09/06/21 09/06/21 History Allergies Allergy/AdvReac Type Severity Reaction Status Date / Time No Known Allergies Allergy Verified 09/06/21 17:24 Physical Exam Vitals: Vital Signs Temp Pulse Pulse Resp BP BP Pulse Ox 09/06/21 23:08 98.4 F 63 18 170/79 97 09/06/21 22:09 59 L 18 137/57 96 09/06/21 22:08 59 L 18 137/57 96 09/06/21 19:24 56 L 18 158/94 97 09/06/21 18:05 71 16 100 09/06/21 17:59 42 L 16 130/71 99 09/06/21 15:26 97.8 F 41 L 18 122/58 98 Intake and Output 09/06/21 09/06/21 09/07/21 14:59 22:59 06:59 Other: Weight 113.398 kg 113.398 kg Constitutional: No acute distress, sleepy easily arousable , makes good eye contact, but does not answer with details just yes and no Eyes: Anicteric sclerae, moist conjunctiva, Pupils equal round reactive to light ENMT: NC/AT Oropharynx clear, no erythema, or exudates Neck: stiff neck. , no masses, or JVD No carotid bruits No thyromegaly Lungs: Clear to auscultation Clear to percussion Normal respiratory effort, no accessory muscle use Cardiovascular: Heart irregular in rate and rhythm, No murmurs, gallops, or rubs peripheral leg edema right > left Abdominal: Soft Nontender, no guarding, rebound or rigidity Abdomen moving with respiration Normoactive bowel sounds No hepatomegaly, No splenomegaly No palpable mass No abdominal wall hernia noted Skin: Normal temperature, tone, texture, turgor No induration No subcutaneous nodules No rash, lesions No ulcers Extremities: No digital cyanosis No clubbing Pedal pulses intact and symmetrical Radial pulses intact and symmetrical No calf tenderness Psychiatric: sleepy easily arousable and oriented to person, Neuro Muscles Strength 4/5 in all 4 extremities Sensation to light touch grossly present throughout Cranial nerves II-XII grossly intact No focal sensory deficits Lymphatics: no palpable cervical or supraclavicular , or inguinal lymph nodes Results CBC & Chem 7: 09/06/21 16:40 09/06/21 16:40 Labs: Abnormal Lab Results - Last 24 Hours (Table) 09/06/21 09/07/21 Range/Units 16:40 00:49 APTT 62.4 H (22.0-30.0) sec Sodium 130 L (137-145) mmol/L Chloride 95 L (98-107) mmol/L BUN 24 H (7-17) mg/dL Creatinine 1.60 H (0.52-1.04) mg/dL Glucose 110 H (74-99) mg/dL TSH 58.600 H (0.465-4.680) mIU/L Thrombosis Risk Factor Assmnt - Choose All That Apply Other Risk Factors: Yes Each Risk Factor Represents 3 Points: Age 75 years or older Thrombosis Risk Factor Assessment Total Risk Factor Score: 3 Thrombosis Risk Factor Assessment Level: Moderate Risk Assessment and Plan Assessment: bradycardia , with rate controlled afib , without history of afib heparin drip trend trops echocardiogram elevated TSH , await free T4 monitoring and evaluation advisor cardiology consult hypothyroid, poorly controlled elevated TSH , await free T4 resume levothyroxine right lower extremity pain and swelling doppler US negative for DVT CKD 3 stable hyponatremia , gentle IVF hydration with normal saline rule out severe hypothyroidism as above hold diuretics fall precautions DNR anticipated lengthof stay < 2 midnights DVT PPX currently on heparin
[2021-09-07] MEDS: SODIUM CHLORIDE 0.9% 1,000 ML IV SCH (08:33)
[2021-09-07 08:45] LABS: Potassium 4.9 mmol/L (3.5-5.1)
[2021-09-07 08:46] LABS: Calcium 8.3 mg/dL (8.4-10.2)
[2021-09-07] MEDS ORDERED: DONEPEZIL 5 MG TAB PO SCH (09:00)
[2021-09-07 09:02] LABS: T4, Free (Free Thyroxine) 0.87 ng/dL (0.78-2.19)
[2021-09-07] MEDS: LEVOTHYROXINE IVP 100 MCG/5 ML VIAL IV SCH (09:10)
[2021-09-07 09:21] VITALS: RESP 18
--- NOTE | 2021-09-07 09:32 | P.CRDCN ---
History of Present Illness History of present illness: HISTORY OF PRESENTING ILLNESS Patient is pleasant 89-year-old female with history of hypothyroidism, knee pain, chronic kidney disease, advanced dementia who presents for knee pain. Patient is not able to supply much history and therefore history is supplied by daughter and son-in-law. Patient apparently does not complain of much however was complaining of some leg pain and therefore brought in the ER. She was found to have an irregular rhythm with bradycardia noted on EKG. On review there appears to be intermittent P waves with low amplitude PACs and occasional junctional rhythm. This was read out as atrial fibrillation however does have intermittent P waves not obvious of atrial fibrillation. She denies any prior history of atrial fibrillation, coronary artery disease, heart failure. She has been on Lasix apparently for mild lower extremity edema. She has never had a s troke or TIA per family. She apparently has been an extended care facility since April and before this had fairly frequent falls at home once every other week however appeared to be more related to her situation and since being at extended care facility has not fallen at all. She denies any lightheadedness or dizziness. She was found to have elevated TSH however normal range of T4 and found to have some hyponatremia and chronic kidney disease. Telemetry reviewed with relatively normal heart rates in the 50s and 60s and frequent pauses usually 2-3 seconds however 5-10 pauses greater than 3 seconds during the sleeping hours up to 4.9 seconds. REVIEW OF SYSTEMS At the time of my exam: CONSTITUTIONAL: Denies fever or chills. CARDIOVASCULAR: Denies chest pain, shortness of breath, orthopnea, PND or palpitations. RESPIRATORY: Denies cough. GASTROINTESTINAL: Denies abdominal pain, diarrhea, constipation, nausea or vomiting. MUSCULOSKELETAL: Denies myalgias. NEUROLOGIC: Denies numbness, tingling or weakness. ENDOCRINE: Denies fatigue, weight change, polydipsia or polyurina. GENITOURINARY: Denies burning, hematuria or urgency with micturation. HEMATOLOGIC: Denies history of anemia or bleeding. PHYSICAL EXAMINATION Vital signs reviewed. CONSTITUTIONAL: No apparent distress. HEENT: Head is normocephalic. Pupils are equal, round. Sclerae anicteric. Mucous membranes of the mouth are moist. No JVD. No carotid bruit. CHEST EXAMINATION: Lungs are clear to auscultation. No chest wall tenderness is noted on palpation or with deep breathing. HEART EXAMINATION: Irregular rate and rhythm. S1, S2 heard. No murmurs, gallops or rub. ABDOMEN: Soft, nontender. Positive bowel sounds. EXTREMITIES: 2+ peripheral pulses, trace lower extremity edema and no calf tenderness. NEUROLOGIC EXAMINATION: Patient is awake, alert, poor recall ASSESSMENT 1. Asymptomatic sinus bradycardia 2. Irregular heart rate showing sinus rhythm with what appears to be junctional rhythm and PACs. Appears more related to sinus arrest, sinoatrial block rather than atrial fibrillation. 3. Hypothyroidism, currently hypothyroid 4. Dementia on Aricept 5. Lower extremity edema, taking diuretic at home 6. Previous history of falls 6 months ago appears to have improved since patient was placed in an extended care facility and appears more mechanical per history 7. Sick sinus syndrome with pauses up to 4.9 seconds exacerbated by Aricept and hypothyroidism PLAN Patient is EKG reviewed with sinus rhythm with what appears to be some sinus arrest/sinoatrial block with junctional rhythm. No clear cut prolonged episodes of atrial fibrillation. Given prior falls, dementia and no clear-cut atrial fi brillation do not recommend anticoagulation. Patient having pauses up to 4.9 seconds during sleeping hours and likely has some component of sick sinus syndrome however likely exacerbated by hypothyroi dism and Aricept. Stop Aricept and adjustments of hypothyroid state per internal medicine. No current indications for permanent pacemaker. Recommend outpatient 30 day event monitor once hypothyroidism adjusted and off of Aricept. Unclear if patient is a good pacemaker candidate with advanced dementia however appears that she is still walking some of the time at home. Okay for discharge home today with outpatient follow-up and outpatient echo. Past Medical History Past Medical History: Cancer, Dementia, Osteoarthritis (OA), Thyroid Disorder Additional Past Medical History / Comment(s): breast cancer History of Any Multi-Drug Resistant Organisms: None Reported Past Surgical History: Joint Replacement Additional Past Surgical History / Comment(s): both hips replaced, cataract surg. Past Anesthesia/Blood Transfusion Reactions: No Reported Reaction Past Psychological History: No Psychological Hx Reported Smoking Status: Never smoker Past Alcohol Use History: None Reported Past Drug Use History: None Reported - Past Family History Daughter(s) Family Medical History: Cancer Mother Family Medical History: Cancer Medications and Allergies Home Medications Medication Instructions Recorded Confirmed Type Levothyroxine Sodium [Synthroid] 100 mcg PO DAILY 01/21/19 09/06/21 History Acetaminophen [Tylenol] 650 mg PO Q6H PRN 09/06/21 09/06/21 History Calcium Lactate 100mg 1 tab PO DAILY 09/06/21 09/06/21 History Donepezil [Aricept] 5 mg PO DAILY 09/06/21 09/06/21 History Furosemide [Lasix] 20 mg PO MOTH 09/06/21 09/06/21 History Omeprazole 20 mg PO DAILY 09/06/21 09/06/21 History Zinc Oxide [Desitin] 1 applic TOPICAL BID 09/06/21 09/06/21 History Allergies Allergy/AdvReac Type Severity Reaction Status Date / Time No Known Allergies Allergy Verified 09/06/21 17:24 Physical Exam Vitals: Vital Signs Temp Pulse Pulse Resp BP BP Pulse Ox 09/07/21 08:00 98.1 F 52 L 18 113/57 92 L 09/07/21 04:00 98.8 F 61 16 144/85 97 09/07/21 02:00 63 18 09/06/21 23:08 98.4 F 63 18 170/79 97 09/06/21 22:09 59 L 18 137/57 96 09/06/21 22:08 59 L 18 137/57 96 09/06/21 19:24 56 L 18 158/94 97 09/06/21 18:05 71 16 100 09/06/21 17:59 42 L 16 130/71 99 09/06/21 15:26 97.8 F 41 L 18 122/58 98 Intake and Output 09/06/21 09/07/21 09/07/21 22:59 06:59 14:59 Intake Total 140.333 Output Total 150 Balance -150 140.333 Intake: Intake, IV Titration 140.333 Amount Heparin Sod,Pork in 0.45% 140.333 NaCl 25,000 unit In 0.45 % NaCl 1 250ml.bag @ 8. 8184 UNITS/KG/HR 10 mls/ hr IV .Q24H [facility] Rx#: [id number] Output: Urine 150 Other: Voiding Method Bedpan Diaper External Catheter Weight 113.398 kg 113.398 kg Results 09/06/21 16:40 09/07/21 07:22 Cardiac Enzymes 09/06/21 Range/Units 16:40 Troponin I 0.013 (0.000-0.034) ng/mL Coagulation 09/07/21 09/07/21 Range/Units 00:49 07:22 APTT 62.4 H 80.4 H (22.0-30.0) sec CBC 09/06/21 Range/Units 16:40 WBC 6.6 (3.8-10.6) k/uL RBC 4.29 (3.80-5.40) m/uL Hgb 12.7 (11.4-16.0) gm/dL Hct 40.8 (34.0-46.0) % Plt Count 161 (150-450) k/uL Comprehensive Metabolic Panel 09/06/21 09/07/21 Range/Units 16:40 07:22 Sodium 130 L 129 L (137-145) mmol/L Potassium 4.9 4.9 (3.5-5.1) mmol/L Chloride 95 L 96 L (98-107) mmol/L Carbon Dioxide 24 25 (22-30) mmol/L BUN 24 H 24 H (7-17) mg/dL Creatinine 1.60 H 1.48 H (0.52-1.04) mg/dL Glucose 110 H 116 H (74-99) mg/dL Calcium 8.8 8.3 L (8.4-10.2) mg/dL Current Medications Generic Name Dose Route Start Last Admin Trade Name Freq PRN Reason Stop Dose Admin Acetaminophen 650 mg 09/06/21 18:27 Acetaminophen Tab 325 Mg Tab PO Q6HR PRN Mild Pain or Fever > 100.5 Donepezil HCl 5 mg 09/07/21 09:00 09/07/21 08:33 Donepezil 5 Mg Tab PO 5 mg DAILY KIMMY Administration Heparin Sodium (Porcine) 0 unit 09/06/21 18:02 Heparin Sodium 1,000 Un/Ml (10ml Vl) IV PER PROTOCOL PRN Low PTT Protocol Hydromorphone HCl 0.5 mg 09/06/21 18:27 Hydromorphone 0.5 Mg/0.5 Ml Syringe IVP Q3HR PRN Moderate Pain Heparin Sodium/Sodium Chloride 250 mls @ 10 mls/hr 09/06/21 18:15 09/07/21 09:16 25,000 unit/ Sodium Chloride IV 6.81 units/kg/hr .Q24H KIMMY 7.722 mls/hr Titration Protocol 8.8184 UNITS/KG/HR Sodium Chloride 1,000 mls @ 75 mls/hr 09/06/21 18:30 09/07/21 08:33 Saline 0.9% IV Not Given .[id number] [facility] Levothyroxine Sodium 75 mcg 09/06/21 18:30 09/07/21 09:10 Levothyroxine Ivp 100 Mcg/5 Ml Vial IV 75 mcg DAILY KIMMY Administration Naloxone HCl 0.2 mg 09/06/21 18:27 Naloxone 0.4 Mg/Ml 1 Ml Vial IV Q2M PRN Opioid Reversal Intake and Output 09/06/21 09/07/21 09/07/21 22:59 06:59 14:59 Intake Total 140.333 Output Total 150 Balance -150 140.333 Intake: Intake, IV Titration 140.333 Amount Heparin Sod,Pork in 0.45% 140.333 NaCl 25,000 unit In 0.45 % NaCl 1 250ml.bag @ 8. 8184 UNITS/KG/HR 10 mls/ hr IV .Q24H [facility] Rx#: [id number] Output: Urine 150 Other: Voiding Method Bedpan Diaper External Catheter Weight 113.398 kg 113.398 kg 09/06/21 16:40 09/07/21 07:22
[2021-09-07 11:59] VITALS: BP 103/47; PULSE 58; TEMP 98
[2021-09-07] MEDS ORDERED: LEVOTHYROXINE 112 MCG TAB PO STA (15:11)
== END 2021-09-07 15:19 | disposition home or self-care (01) | DRG 309 ==
LOC: EC 15:08 → 3SCARD 18:28
PROVIDERS: ADMIT Internal Medicine; ATTEND Internal Medicine
DX: I49.5 Sick sinus syndrome (principal); E87.1 Hypo-osmolality and hyponatremia; E03.9 Hypothyroidism, unspecified; F03.90 Unspecified dementia, unspecified severity, without behavioral disturbance, psychotic disturbance, mood disturbance, and anxiety; I45.5 Other specified heart block; M19.90 Unspecified osteoarthritis, unspecified site; M25.561 Pain in right knee; I49.1 Atrial premature depolarization; N18.30 Chronic kidney disease, stage 3 unspecified; T44.1X5A Adverse effect of other parasympathomimetics [cholinergics], initial encounter; R29.6 Repeated falls; Z66 Do not resuscitate; Z79.890 Hormone replacement therapy; Z79.899 Other long term (current) drug therapy; Z85.3 Personal history of malignant neoplasm of breast; Z91.81 History of falling; Z96.643 Presence of artificial hip joint, bilateral; Z98.49 Cataract extraction status, unspecified eye
CPT/HCPCS: 36415; 73521; 80048; 83605; 83735; 84439; 84443; 84484; 85025; 85730; 93005; 96374; 96375; 99291

== ENCOUNTER 2021-10-29 08:35 | Inpatient (IN) | payer MEDICARE, OTHER ==
--- NOTE | 2021-10-29 09:08 | ED ---
General Adult HPI - General Chief complaint: Shortness of Breath Stated complaint: fever, weakness Time Seen by Provider: 10/29/21 08:51 Source: patient, EMS, RN notes reviewed, old records reviewed Mode of arrival: EMS Limitations: altered mental status - History of Present Illness Initial comments: Patient is an 89-year-old female with past medical history remarkable for dementia, breast cancer, hypothyroidism, acid reflux who presents from the [facility] presents complaining of a productive cough for multiple days. Apparently a cough like illnesses going around the facility. He states is productive of yellow mucus. Denies sore throat. Denies shortness of breath. Denies chest pain. Denies abdominal pain, nausea, vomiting. Endorses a runny nose. States the cough is getting worse. Sent here for further evaluation. SHe was vaccinated for Covid. Denies fevers. - Related Data Home Medications Medication Instructions Recorded Confirmed Acetaminophen [Tylenol] 650 mg PO Q6H PRN 09/06/21 10/29/21 Calcium Lactate 100mg 1 tab PO DAILY 09/06/21 10/29/21 Furosemide [Lasix] 20 mg PO MOWEFR 09/06/21 10/29/21 Omeprazole 20 mg PO DAILY 09/06/21 10/29/21 Zinc Oxide [Desitin] 1 applic TOPICAL BID 09/06/21 10/29/21 Previous Rx's Medication Instructions Recorded Levothyroxine Sodium 112 mcg PO DAILY #30 tablet 09/07/21 Allergies Allergy/AdvReac Type Severity Reaction Status Date / Time No Known Allergies Allergy Verified 10/29/21 11:06 Review of Systems ROS Statement: Those systems with pertinent positive or pertinent negative responses have been documented in the HPI. Review of Systems: CONST: Denies fever EYES: Denies blurry vision ENT: Endorses nasal congestion C/V: Denies Chest pain RESP: Denies shortness of breath GI: Denies abdominal pain : Denies dysuria SKIN: Denies rash. MSK: Denies joint pain. NEURO: Denies headache ROS Other: All systems not noted in ROS Statement are negative. Past Medical History Past Medical History: Cancer, Dementia, Osteoarthritis (OA), Thyroid Disorder Additional Past Medical History / Comment(s): breast cancer History of Any Multi-Drug Resistant Organisms: None Reported Past Surgical History: Joint Replacement Additional Past Surgical History / Comment(s): both hips replaced, cataract surg. Past Anesthesia/Blood Transfusion Reactions: No Reported Reaction Past Psychological History: No Psychological Hx Reported Smoking Status: Never smoker Past Alcohol Use History: None Reported Past Drug Use History: None Reported - Past Family History Daughter(s) Family Medical History: Cancer Mother Family Medical History: Cancer Father Family Medical History: Cancer Additional Family Medical History / Comment(s): Father worked in [employer]. He had spider cancer. General Exam - General Exam Comments Initial Comments: General: Appears in no acute distress. HEAD: Normal with no signs of head trauma. EYES: PERRLA, EOMI, conjunctiva normal, no discharge. ENT: Hearing grossly intact, normal oropharynx. RESPIRATORY: Clear breath sounds bilaterally. No obvious wheezes, rales, or rhonchi. No increased work of breathing. C/V: Regular rate and rhythm. S1 and S2 auscultated, no edema, peripheral pulses 2+ and intact throughout ABD: Abd is soft, nontender, nondistended EXT: Normal range of motion, no obvious deformity SKIN: No rashes or lesions observed on exposed skin. NEURO: Alert and oriented 2-3 which is her baseline. No focal deficits. Limitations: altered mental status Course Vital Signs 10/29/21 10/29/21 08:41 10:57 Temperature 99.1 F 98.9 F Pulse Rate 85 86 Respiratory 16 16 Rate Blood Pressure 126/67 138/127 O2 Sat by Pulse 96 92 L Oximetry Medical Decision Making - Medical Decision Making Based on the patient's presentation and physical exam, does appear she is experiencing an upper respiratory illness particularly with her symptoms and known upper respiratory illness going around her nursing facility. Screening EKG will be obtained in addition to infectious labs, chest x-ray, viral swabs. She was in agreement this plan. Patient's son presented at bedside and he was also in agreement this plan. EKG showed no signs of acute ischemia and was unchanged from prior EKGs.Chest x- ray shows right lower lobe pneumonia. Laboratory studies are relatively unremarkable except for slightly elevated creatinine of 1.4 in setting of CKD. Covid and flu negative. Patient is on 2 L nasal cannula for her mild hypoxia at rest which does dip down to 89-90%. I discussed with the patient as well as patient's daughter who is at bedside. I would like to admitted to the hospital for IV antibiotics. They were in agreement this plan. Patient was started on Rocephin and azithromycin. Blood cultures were obtained and sent. I spoke with the admitting physician, Dr. Petit of [facility] who accepted the patient. Patient was admitted in stable condition. - Lab Data Result diagrams: 10/29/21 09:07 10/29/21 09:07 Lab Results 10/29/21 10/29/21 10/29/21 Range/Units 09:07 09:07 09:07 WBC 8.2 (3.8-10.6) k/uL RBC 3.86 (3.80-5.40) m/uL Hgb 11.6 (11.4-16.0) gm/dL Hct 36.7 (34.0-46.0) % MCV 94.9 (80.0-100.0) fL MCH 30.0 (25.0-35.0) pg MCHC 31.6 (31.0-37.0) g/dL RDW 12.9 (11.5-15.5) % Plt Count 181 (150-450) k/uL MPV 7.7 Neutrophils % 78 % Lymphocytes % 10 % Monocytes % 8 % Eosinophils % 2 % Basophils % 0 % Neutrophils # 6.4 (1.3-7.7) k/uL Lymphocytes # 0.9 L (1.0-4.8) k/uL Monocytes # 0.7 (0-1.0) k/uL Eosinophils # 0.2 (0-0.7) k/uL Basophils # 0.0 (0-0.2) k/uL Sodium 133 L (137-145) mmol/L Potassium 4.3 (3.5-5.1) mmol/L Chloride 100 (98-107) mmol/L Carbon Dioxide 26 (22-30) mmol/L Anion Gap 7 mmol/L BUN 19 H (7-17) mg/dL Creatinine 1.48 H (0.52-1.04) mg/dL Est GFR (CKD-EPI)AfAm 36 (>60 ml/min/1.73 sqM) Est GFR (CKD-EPI)NonAf 31 (>60 ml/min/1.73 sqM) Glucose 102 H (74-99) mg/dL Plasma Lactic Acid Tj 1.2 (0.7-2.0) mmol/L Calcium 8.2 L (8.4-10.2) mg/dL Magnesium 1.7 (1.6-2.3) mg/dL Total Bilirubin 1.1 (0.2-1.3) mg/dL AST 24 (14-36) U/L ALT 11 (4-34) U/L Alkaline Phosphatase 177 H (38-126) U/L Total Protein 6.6 (6.3-8.2) g/dL Albumin 3.5 (3.5-5.0) g/dL Coronavirus (PCR) (Not Detectd) Influenza Type A RNA (Not Detectd) Influenza Type B (PCR) (Not Detectd) 10/29/21 10/29/21 Range/Units 09:19 09:19 WBC (3.8-10.6) k/uL RBC (3.80-5.40) m/uL Hgb (11.4-16.0) gm/dL Hct (34.0-46.0) % MCV (80.0-100.0) fL MCH (25.0-35.0) pg MCHC (31.0-37.0) g/dL RDW (11.5-15.5) % Plt Count (150-450) k/uL MPV Neutrophils % % Lymphocytes % % Monocytes % % Eosinophils % % Basophils % % Neutrophils # (1.3-7.7) k/uL Lymphocytes # (1.0-4.8) k/uL Monocytes # (0-1.0) k/uL Eosinophils # (0-0.7) k/uL Basophils # (0-0.2) k/uL Sodium (137-145) mmol/L Potassium (3.5-5.1) mmol/L Chloride (98-107) mmol/L Carbon Dioxide (22-30) mmol/L Anion Gap mmol/L BUN (7-17) mg/dL Creatinine (0.52-1.04) mg/dL Est GFR (CKD-EPI)AfAm (>60 ml/min/1.73 sqM) Est GFR (CKD-EPI)NonAf (>60 ml/min/1.73 sqM) Glucose (74-99) mg/dL Plasma Lactic Acid Tj (0.7-2.0) mmol/L Calcium (8.4-10.2) mg/dL Magnesium (1.6-2.3) mg/dL Total Bilirubin (0.2-1.3) mg/dL AST (14-36) U/L ALT (4-34) U/L Alkaline Phosphatase (38-126) U/L Total Protein (6.3-8.2) g/dL Albumin (3.5-5.0) g/dL Coronavirus (PCR) Not Detected (Not Detectd) Influenza Type A RNA Not Detected (Not Detectd) Influenza Type B (PCR) Not Detected (Not Detectd) - EKG Data -: EKG Interpreted by Me EKG Comments: 12-lead Electrocardiogram Interpretation Note EKG was reviewed and interpreted by myself. 12-lead ECG performed at 0843 is interpreted by me as revealing normal sinus rhythm with first-degree AV block at a rate of 87 beats per minute. [place] is normal. [place] interval is 272 ms, first- degree AV block. QRS duration is 149 ms, QTc is 395 ms.. There were no ST or T wave abnormalities to suggest myocardial ischemia or injury. Right bundle- branch block is present. R wave progression across the precordium was satisfactory. By my interpretation this EKG is non-diagnostic for acute ischemia. Relatively unchanged compared to prior EKGs. Prior EKGs after evalua tion by cardiology were not atrial fibrillation but rather slow sinus bradycardia. Disposition Clinical Impression: Pneumonia, Hypoxia Disposition: ADMITTED IP TO THIS HOSP Condition: Stable Time of Disposition: 10:30
[2021-10-29 09:26] LABS: Basophils % (A) 0 %; Eosinophils # (A) 0.2 k/uL (0-0.7); Eosinophils % (A) 2 %; HCT 36.7 % (34.0-46.0); HGB 11.6 gm/dL (11.4-16.0); Lymphocytes # (A) 0.9 k/uL (1.0-4.8); Lymphocytes % (A) 10 %; MCHC 31.6 g/dL (31.0-37.0); MCV 94.9 fL (80.0-100.0); Mean Platelet Volume 7.7; Monocytes # (A) 0.7 k/uL (0-1.0); Monocytes % (A) 8 %; Neutrophils # (A) 6.4 k/uL (1.3-7.7); Neutrophils % (A) 78 %; Platelet Count 181 k/uL (150-450); RBC 3.86 m/uL (3.80-5.40); RDW 12.9 % (11.5-15.5); WBC 8.2 k/uL (3.8-10.6)
--- NOTE | 2021-10-29 09:37 | XR ---
EXAMINATION TYPE: XR chest 2V DATE OF EXAM: 10/29/2021 COMPARISON: 01/21/2019 HISTORY: Shortness of breath TECHNIQUE: Frontal and lateral views of the chest are obtained. FINDINGS: Scattered senescent parenchymal changes noted. Hyperinflation compatible with COPD. Right lower lobe infiltrate is noted. Correlate for pneumonia. Heart size is stable. Mediastinal structures are stable and grossly unremarkable. No evidence for hilar prominence. Degenerative changes dorsal spine. IMPRESSION: 1. Right lower lobe infiltrate is noted. Correlate for pneumonia.
[2021-10-29 09:38] LABS: Albumin 3.5 g/dL (3.5-5.0); Calcium 8.2 mg/dL (8.4-10.2); Magnesium 1.7 mg/dL (1.6-2.3); Potassium 4.3 mmol/L (3.5-5.1); Total Bilirubin 1.1 mg/dL (0.2-1.3); Total Protein 6.6 g/dL (6.3-8.2)
[2021-10-29] MEDS ORDERED: AZITHROMYCIN 500 MG in SODIUM CHLORIDE 0.9% 250 ML IVPB STA (10:38)
[2021-10-29] MEDS ORDERED: PNEUMONIA PROTOCOL UTILIZED 1 EACH MISC PO PRN (10:38)
[2021-10-29] MEDS: PANTOPRAZOLE 40 MG TABLET PO SCH (13:40)
[2021-10-29] MEDS: ZINC OXIDE 20% OINT 28.4 GM TUBE TOPICAL SCH ×2 (13:40→20:24)
[2021-10-29] MEDS ORDERED: NALOXONE 0.4 MG/ML 1 ML VIAL IV PRN (13:47)
[2021-10-29] MEDS ORDERED: CALCIUM CARBONATE 500 MG CHEWABLE PO PRN (13:47)
[2021-10-29] MEDS ORDERED: ONDANSETRON 4 MG/2 ML VIAL IVP PRN (13:47)
[2021-10-29] MEDS ORDERED: MELATONIN 3 MG TABLET PO PRN (13:47)
[2021-10-29] MEDS ORDERED: LACTULOSE 20 GM/30 ML CUP PO PRN (13:47)
[2021-10-29] MEDS ORDERED: LORazepam 0.5 MG TAB PO PRN (13:47)
[2021-10-29] MEDS: ACETAMINOPHEN TAB 325 MG TAB PO PRN (14:39)
--- NOTE | 2021-10-29 16:35 | P.HPIM ---
History of Present Illness H&P Date: 10/29/21 Chief Complaint: Cough I am covering today for Dr. Fredrick Petit This is a pleasant 89-year-old patient, was chronic stable medical conditions include dementia, osteoporosis, hypothyroid, gait dysfunction, CK D. Patient is a resident of assisted living. Mostly uses a wheelchair. History is obtained by the daughter the bedside. Patient is able to recognize family members. Can feed herself. Does wear pull- ups. Appetite has been fair. No change in bowel habit. Presents with 2 days of increasing cough. Yellow sputum. Slight shortness of breath. ER found to have pneumonia. Patient can answer occasional questions. Review of systems: GEN.: Tired EYES: None HEENT: Decreased hearing NECK: None RESPIRATORY: As above CARDIOVASCULAR: None GASTROINTESTINAL: None GENITOURINARY: Incontinent MUSCULOSKELETAL: Joint pains LYMPHATICS: None HEMATOLOGICAL: None PSYCHIATRY: Forgetful NEUROLOGICAL: Uses a walker/wheelchair Past medical history to include: Osteomyelitis, hypothyroid, rest cancer, dementia Social history: No history of smoking or alcohol. Mostly uses a wheelchair, sometimes walker. Lives at [facility] Family history: Father spider cancer Physical examination: VITAL SIGNS: 102.8, 89, 16, 145-62, 92% on room air GENERAL: BMI 37.5, reclining in bed awake, tired. EYES: Pupils equal. Conjunctiva normal. HEENT: External appearance of nose and ears normal, oral cavity grossly normal. Decreased hearing NECK: JVD not raised; masses not palpable. HEART: First and second heart sounds are normal; no edema. LUNGS: Respiratory rate increased; coarse breath sounds right base. ABDOMEN: Soft, nontender, liver spleen not palpable, no masses palpable. PSYCH: Patient able tonsil simple questionsl. MUSCULOSKELETAL:No Clubbing/cyanosis;muscles-grossly intact. Evidence of OA NEUROLOGICAL: Cranial nerves grossly intact; no facial asymmetry, power and sensation grossly intact. LYMPHATICS: No lymph nodes palpable in the axilla and neck INVESTIGATIONS, reviewed in the clinical context: White count 8.2 hemoglobin 11.6 platelets 181 sodium 133 potassium 4.3 BUN 19 creatinine 1.48 COVID 19/influenza type A and type B: Not detected EKG tracing personally reviewed by me-normal sinus rhythm, right bundle block block Chest x-ray film personally reviewed by me-right basilar infiltrate, some of the chronic changes Assessment and plan: -Right lower lobe pneumonia, suspect gram-negative organism IV ceftriaxone, Zithromax. 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 Sputum for Gram stain and culture. Resume home medications. Subcu Lovenox. Care was discussed with her daughter the bedside. Questions answered. Past Medical History Past Medical History: Atrial Fibrillation, Cancer, Dementia, GERD/Reflux, Osteoarthritis (OA), Renal Disease, Thyroid Disorder Additional Past Medical History / Comment(s): L breast cancer with partial mastectomy, SSS, bronchitis, lower leg/pedal edema, CKD stage III, hyponatremia, Jiménez's esophagus, esophageal stricture, diverticulosis, benign colon polyps. History of Any Multi-Drug Resistant Organisms: None Reported Past Surgical History: Breast Surgery, Hysterectomy, Joint Replacement, Tonsillectomy Additional Past Surgical History / Comment(s): Bilateral hip arthroplasty, L breast biopsy, R breast partial mastectomy, EGD/foreign body removed, colonoscopy, bilateral cataract removals. Past Anesthesia/Blood Transfusion Reactions: No Reported Reaction Smoking Status: Never smoker - Past Family History Daughter(s) Family Medical History: Cancer Mother Family Medical History: Cancer Additional Family Medical History / Comment(s): Breast cancer with mastectomy Father Family Medical History: Cancer Additional Family Medical History / Comment(s): Father worked in [employer]. He had spider cancer. Medications and Allergies Home Medications Medication Instructions Recorded Confirmed Type Acetaminophen [Tylenol] 650 mg PO Q6H PRN 09/06/21 10/29/21 History Calcium Lactate 100mg 1 tab PO DAILY 09/06/21 10/29/21 History Furosemide [Lasix] 20 mg PO MOWEFR 09/06/21 10/29/21 History Omeprazole 20 mg PO DAILY 09/06/21 10/29/21 History Zinc Oxide [Desitin] 1 applic TOPICAL BID 09/06/21 10/29/21 History Levothyroxine Sodium 112 mcg PO DAILY #30 tablet 09/07/21 10/29/21 Rx Allergies Allergy/AdvReac Type Severity Reaction Status Date / Time No Known Allergies Allergy Verified 10/29/21 11:06 Physical Exam Vitals: Vital Signs Temp Pulse Resp BP Pulse Ox 10/29/21 10:57 98.9 F 86 16 138/127 92 L 10/29/21 08:41 99.1 F 85 16 126/67 96 Intake and Output 10/28/21 10/29/21 10/29/21 22:59 06:59 14:59 Other: Weight 92.986 kg Results CBC & Chem 7: 10/29/21 09:07 10/29/21 09:07 Labs: Abnormal Lab Results - Last 24 Hours (Table) 10/29/21 10/29/21 Range/Units 09:07 09:07 Lymphocytes # 0.9 L (1.0-4.8) k/uL Sodium 133 L (137-145) mmol/L BUN 19 H (7-17) mg/dL Creatinine 1.48 H (0.52-1.04) mg/dL Glucose 102 H (74-99) mg/dL Calcium 8.2 L (8.4-10.2) mg/dL Alkaline Phosphatase 177 H (38-126) U/L Thrombosis Risk Factor Assmnt - Choose All That Apply Any of the Below Risk Factors Present?: Yes Each Factor Represents 1 point: Obesity (BMI >25), Serious lung disease incl. pneumonia (< 1month) Other Risk Factors: Yes Each Risk Factor Represents 2 Points: Malignancy Each Risk Factor Represents 3 Points: Age 75 years or older Other congenital or acquired thrombophilia - If yes, enter type in comment: No Thrombosis Risk Factor Assessment Total Risk Factor Score: 7 Thrombosis Risk Factor Assessment Level: High Risk
[2021-10-29] MEDS ORDERED: ENOXAPARIN 40 MG/0.4 ML SYRINGE SQ SCH (16:45)
[2021-10-29] MEDS: ENOXAPARIN 30 MG/0.3 ML SYRINGE SQ SCH (16:50)
[2021-10-29] MEDS ORDERED: HEPARIN SODIUM,PORCINE/PF 5,000 UNIT/0.5 ML SYRINGE SQ SCH (21:00)
[2021-10-30] MEDS: LEVOTHYROXINE 112 MCG TAB PO SCH (05:58)
[2021-10-30 07:29] LABS: African American GFR (CKD) 37 (>60 ml/min/1.73 sqM); Anion Gap 6 mmol/L; Blood Urea Nitrogen 20 mg/dL (7-17); Calcium 8.5 mg/dL (8.4-10.2); Carbon Dioxide 28 mmol/L (22-30); Chloride 101 mmol/L (98-107); Glucose 100 mg/dL (74-99); Non-African American GFR(CKD) 32 (>60 ml/min/1.73 sqM); Potassium 4.1 mmol/L (3.5-5.1); Sodium 135 mmol/L (137-145)
[2021-10-30] MEDS: AZITHROMYCIN 500 MG TAB PO SCH (07:37)
[2021-10-30] MEDS: PANTOPRAZOLE 40 MG TABLET PO SCH (07:37)
[2021-10-30] MEDS: ENOXAPARIN 30 MG/0.3 ML SYRINGE SQ SCH (07:37)
[2021-10-30] MEDS: ZINC OXIDE 20% OINT 28.4 GM TUBE TOPICAL SCH ×2 (07:43→20:27)
[2021-10-30 09:03] LABS: Basophils # (A) 0.02 X 10*3/uL (0.00-0.10); Basophils % (A) 0.2 %; Eosinophils # (A) 0.15 X 10*3/uL (0.04-0.35); Eosinophils % (A) 1.4 %; HCT 35.3 % (37.2-46.3); HGB 11.1 g/dL (12.0-15.0); Immature Grans, Automated 1.1 %; Lymphocytes # (A) 1.46 X 10*3/uL (0.90-5.00); Lymphocytes % (A) 13.6 %; MCH 29.3 pg (27.0-32.0); MCHC 31.4 g/dL (32.0-37.0); MCV 93.1 fL (80.0-97.0); Monocytes # (A) 1.04 X 10*3/uL (0.20-1.00); Monocytes % (A) 9.7 %; NRBC Per 100 WBC 0 /100 WBCS (0.0-0.0); Neutrophils # (A) 7.98 X 10*3/uL (1.80-7.70); Platelet Count 211 X 10*3/uL (140-440); RBC 3.79 X 10*6/uL (4.10-5.20); RDW 13.6 % (11.5-14.5); WBC 10.77 X 10*3/uL (4.50-10.00)
--- NOTE | 2021-10-30 10:08 | XR ---
EXAMINATION TYPE: XR chest 2V DATE OF EXAM: 10/30/2021 COMPARISON: 10/29/2021 HISTORY: 89-year-old female pneumonia TECHNIQUE: AP and lateral views FINDINGS: Heart upper limits of normal in size. Mild hyperinflation. Interstitial densities persist. Continued focal air space opacity at the right base, relatively similar to prior. IMPRESSION: COPD and continued right basilar airspace disease/pneumonia.
[2021-10-31] MEDS: LEVOTHYROXINE 112 MCG TAB PO SCH (06:23)
[2021-10-31] MEDS: PANTOPRAZOLE 40 MG TABLET PO SCH (08:07)
[2021-10-31] MEDS: ENOXAPARIN 30 MG/0.3 ML SYRINGE SQ SCH (08:07)
[2021-10-31] MEDS: AZITHROMYCIN 500 MG TAB PO SCH (08:07)
[2021-10-31] MEDS: ZINC OXIDE 20% OINT 28.4 GM TUBE TOPICAL SCH ×2 (08:08→21:11)
[2021-10-31] MEDS: FUROSEMIDE 40 MG TAB PO SCH (10:13)
--- NOTE | 2021-10-31 10:47 | P.CRDCN ---
History of Present Illness History of present illness: HISTORY OF PRESENTING ILLNESS This is a pleasant 89-year-old female past medical history significant for hypothyroidism, chronic kidney disease, advanced dementia, knee pain, sinus bradycardia. She does not follow with a care consultant. We have been asked to see in consultation for "ST elevation". Patient presents emergency department with a productive cough, hypoxia. Currently being treated for right lower lobe pneumonia. Patient is from a [facility]. Patient denies any chest pain, shortness of breath, lightheadedness, dizziness, palpitations, syncope. Overall she is feeling well. She has no complaints. Telemetry and EKG reviewed, no evidence of ST elevation, patient with a right bundle branch block with j point elevation. Patient maintaining sinus mechanism on the monitor heart rate in the 60s, 2 second pauses noted. Patient was admitted in August 2021 was evaluated from cardiology due to bradycardia which is thought to be related to patient's hypothyroidism and Aricept. This medication was discontinued. DIAGNOSTICS * EKG reveals sinus rhythm, first-degree AV block, right bundle branch block * Chest xray mild hyperinflation, right lower lobe infiltrate, cardiomegaly * Laboratory reviewed, CBC 10.7, hemoglobin 11.1, platelets 211, sodium 135, potassium 4.1, BUN 20, serum creatinine 1.4, troponin negative, pro-calcitonin elevated, COVID-19 negative, influenza negative * Current home medications include Lasix 20 mg Wednesday, Synthroid, Omeprazole, zinc REVIEW OF SYSTEMS At the time of my exam: CONSTITUTIONAL: Denies fever or chills. CARDIOVASCULAR: Denies chest pain, shortness of breath, orthopnea, PND or palpitations. RESPIRATORY: Denies cough. GASTROINTESTINAL: Denies abdominal pain, diarrhea, constipation, nausea or vomiting. MUSCULOSKELETAL: Denies myalgias. NEUROLOGIC: Denies numbness, tingling, headacbe or weakness. ENDOCRINE: Denies fatigue, weight change, polydipsia or polyurina. GENITOURINARY: Denies burning, hematuria or urgency with micturation. HEMATOLOGIC: Denies history of anemia or bleeding. PHYSICAL EXAMINATION Blood pressure 147/73, heart rate 78, afebrile, saturation 94% on room air CONSTITUTIONAL: No apparent distress. HEENT: Head is normocephalic. Pupils are equal, round. Sclerae anicteric. Mucous membranes of the mouth are moist. No JVD. No carotid bruit. CHEST EXAMINATION: Lungs are diminished bilaterally to auscultation. No chest wall tenderness is noted on palpation or with deep breathing. HEART EXAMINATION: Regular rate and rhythm. S1, S2 heard. ABDOMEN: Soft, nontender. Positive bowel sounds. EXTREMITIES: 2+ peripheral pulses, 1+ bilateral lower extremity edema and no calf tenderness. NEUROLOGIC EXAMINATION: Patient is awake, alert and oriented x3. ASSESSMENT Hypoxia, productive cough Right lower lobe pneumonia Advanced dementia Chronic kidney disease PLAN Telemetry and EKG reviewed, no evidence of ST elevation, no acute changes or abnormalities on EKG Obtain 2D echocardiogram and doppler study to assess cardiac structure and function. Start Lasix 40mg daily Check pro BNP Further recommendations based on clinical course Nurse practitioner note has been reviewed by physician. Signing provider agrees with the documented findings, assessment, and plan of care. Past Medical History Past Medical History: Atrial Fibrillation, Cancer, Dementia, GERD/Reflux, Osteoarthritis (OA), Renal Disease, Thyroid Disorder Additional Past Medical History / Comment(s): L breast cancer with partial mastectomy, SSS, bronchitis, lower leg/pedal edema, CKD stage III, hyponatremia, Jiménez's esophagus, esophageal stricture, diverticulosis, benign colon polyps. History of Any Multi-Drug Resistant Organisms: None Reported Past Surgical History: Breast Surgery, Hysterectomy, Joint Replacement, Tonsillectomy Additional Past Surgical History / Comment(s): Bilateral hip arthroplasty, L breast biopsy, R breast partial mastectomy, EGD/foreign body removed, colonoscopy, bilateral cataract removals. Past Anesthesia/Blood Transfusion Reactions: No Reported Reaction Smoking Status: Never smoker - Past Family History Daughter(s) Family Medical History: Cancer Mother Family Medical History: Cancer Additional Family Medical History / Comment(s): Breast cancer with mastectomy Father Family Medical History: Cancer Additional Family Medical History / Comment(s): Father worked in [employer]. He had spider cancer. Medications and Allergies Home Medications Medication Instructions Recorded Confirmed Type Acetaminophen [Tylenol] 650 mg PO Q6H PRN 09/06/21 10/29/21 History Calcium Lactate 100mg 1 tab PO DAILY 09/06/21 10/29/21 History Furosemide [Lasix] 20 mg PO MOWEFR 09/06/21 10/29/21 History Omeprazole 20 mg PO DAILY 09/06/21 10/29/21 History Zinc Oxide [Desitin] 1 applic TOPICAL BID 09/06/21 10/29/21 History Levothyroxine Sodium 112 mcg PO DAILY #30 tablet 09/07/21 10/29/21 Rx Allergies Allergy/AdvReac Type Severity Reaction Status Date / Time No Known Allergies Allergy Verified 10/29/21 11:06 Physical Exam Vitals: Vital Signs Temp Pulse Resp BP Pulse Ox 10/31/21 08:00 98.5 F 78 16 147/73 94 L 10/31/21 02:00 98.2 F 80 16 125/71 92 L 10/30/21 20:00 80 10/30/21 18:53 98.5 F 69 16 152/69 96 10/30/21 14:00 98.4 F 77 18 122/80 95 Intake and Output 10/30/21 10/31/21 10/31/21 22:59 06:59 14:59 Intake Total 200 240 Balance 200 240 Intake: Oral 200 240 Other: # Voids 2 1 # Bowel Movements 1 Results 10/30/21 06:36 10/30/21 06:36 Cardiac Enzymes 10/30/21 Range/Units 21:42 Troponin I <0.012 (0.000-0.034) ng/mL Current Medications Generic Name Dose Route Start Last Admin Trade Name Freq PRN Reason Stop Dose Admin Acetaminophen 650 mg 10/29/21 12:53 10/29/21 14:39 Acetaminophen Tab 325 Mg Tab PO 650 mg Q6H PRN Administration Pain Calcium Carbonate/Glycine 1,000 mg 10/29/21 13:47 Calcium Carbonate 500 Mg Chewable PO Q4HR PRN Dyspepsia Enoxaparin Sodium 30 mg 10/29/21 17:00 10/31/21 08:07 Enoxaparin 30 Mg/0.3 Ml Syringe SQ 30 mg DAILY KIMMY Administration Furosemide 40 mg 10/31/21 09:15 10/31/21 10:13 Furosemide 40 Mg Tab PO 40 mg DAILY KIMMY Administration Lactulose 20 gm 10/29/21 13:47 Lactulose 20 Gm/30 Ml Cup PO DAILY PRN Constipation Levothyroxine Sodium 112 mcg 10/30/21 06:30 10/31/21 06:23 Levothyroxine 112 Mcg Tab PO 112 mcg 0630 KIMMY Administration Lorazepam 0.5 mg 10/29/21 13:47 Lorazepam 0.5 Mg Tab PO Q6HR PRN Anxiety Melatonin 3 mg 10/29/21 13:47 Melatonin 3 Mg Tablet PO HS PRN Insomnia Miscellaneous Information 1 each 10/29/21 10:38 Pneumonia Protocol Utilized 1 Each Misc PO ONCE PRN Per Protocol Multi-Ingredient Ointment 1 applic 10/29/21 13:00 10/31/21 08:08 Zinc Oxide 20% Oint 28.4 Gm Tube TOPICAL 1 applic BID KIMMY Administration Naloxone HCl 0.2 mg 10/29/21 13:47 Naloxone 0.4 Mg/Ml 1 Ml Vial IV Q2M PRN Opioid Reversal Ondansetron HCl 4 mg 10/29/21 13:47 Ondansetron 4 Mg/2 Ml Vial IVP Q8HR PRN Nausea And Vomiting Pantoprazole Sodium 40 mg 10/29/21 13:00 10/31/21 08:07 Pantoprazole 40 Mg Tablet PO 40 mg DAILY KIMMY Administration Intake and Output 10/30/21 10/31/21 10/31/21 22:59 06:59 14:59 Intake Total 200 240 Balance 200 240 Intake: Oral 200 240 Other: # Voids 2 1 # Bowel Movements 1 10/30/21 06:36 10/30/21 06:36
[2021-10-31] MEDS ORDERED: VANCOMYCIN IV PER PHARMACY 1 EACH MISC MISCELLANE PRN (11:35)
[2021-10-31] MEDS ORDERED: VANCOMYCIN 1,500 MG in SODIUM CHLORIDE 0.9% 250 ML IVPB ONE (11:45)
--- NOTE | 2021-10-31 12:19 | CA ---
Transthoracic Echo Report Name: Denisha Arzate Age: 89 Gender: F : 1930 Exam Date: 10/31/2021 10:43 Exam Location: [facility] Ht (in): 62 Wt (lb): 205 Ordering Physician: Shiela Parr Attending/Referring Phys: Timber Cruiser Enma Peña RDCS Procedure CPT: Indications: LV function Cardiac Hx: Technical Quality: Fair Contrast 1: N/A Total Dose (mL): Contrast 2: Total Dose (mL): MEASUREMENTS (Male / Female) Normal Values M-MODE Aortic Root Diameter MM 3.1 cm LA Systolic Diameter MM 3.4 cm LA Ao Ratio MM 1.1 MV E Point Septal Separation 0.7 cm AV Cusp Separation MM 1.7 cm FINDINGS Left Ventricle Left ventricular ejection fraction is estimated at 55-60%. Right Ventricle Normal right ventricular size and function. Right Atrium Normal right atrial size. Left Atrium Normal left atrial size. Mitral Valve Structurally normal mitral valve. Mild mitral annular calcification. Mild mitral regurgitation. Aortic Valve Aortic valve sclerosis. Tricuspid Valve Structurally normal tricuspid valve. Pulmonic Valve Pulmonic valve not well visualized. Pericardium Normal pericardium. Aorta Normal size aortic root and proximal ascending aorta. CONCLUSIONS Normal left ventricular ejection fraction 55-60% Mild mitral regurgitation Mild mitral annular calcification No pericardial effusion Previewed by: Dr. Chilo Elder DO (Electronically Signed) Final Date: 31 October 2021 12:19
--- NOTE | 2021-10-31 19:13 | PN ---
PROGRESS NOTE DATE OF SERVICE: 10/30/2021 This 89-year-old white female states her breathing is slightly improving, although she had a positive blood culture come back. Awaiting Dr. Contreras's recommendations. Will have to keep her here and repeat blood cultures keep treating her with Rocephin. She states she did know she had pneumonia. I informed her she did. Cardiovascular S1- S2. Lungs with wheezes at the bases. Hematology negative Homans. She looks her stated age. ASSESSMENT: 1. Community-acquired pneumonia. 2. Acute hypoxemic respiratory failure. 3. Possible bacteremia. Will have to treat bacteremia. Repeat blood cultures. Continue current antibiotics. Await Dr. Contrears's recommendations. MMODL / IJN: [id number] /
--- NOTE | 2021-10-31 23:20 | P.CONS ---
History of Present Illness - Reason for Consult Consult date: 10/31/21 Positive blood culture Requesting physician: Fredrick Petit - Chief Complaint Shortness of breath x few days - History of Present Illness Patient is a 89-year-old female with a past medical history taken for dementia breast cancer hypothyroidism resident of a custodial presenting to the hospital 2 days ago for evaluation of productive cough for multiple days the patient complaining of shortness of breath and a cough which is mild to moderate intensity bring up some yellowish mucus. Denies having any sore throat no choking on the food denies any abdominal pain and no diarrhea with the symptom the patient was evaluated by the ER physician on presentation to the hospital patient did have a fever of 102.8 F, the patient is afebrile since then patient is currently not requiring any supplemental oxygen patient did have a normal white count with repeat CBC apparently elevated and did have a left shift BUN and creatinine slightly elevated procalcitonin 1.17 influenza and hernandez PCR were negative patient did have blood cultures obtained which grew alphahemolytic Streptococcus and coagulase-negative staph patient chest x-ray on admission right lower lobe infiltrate correlate for pneumonia patient was treated with Rocephin and Zithromax vancomycin was added this morning infectious he was consulted for further management because of her positive blood culture Review of Systems Positive point has been mentioned in the HPI rest of the systems are negative Past Medical History Past Medical History: Atrial Fibrillation, Cancer, Dementia, GERD/Reflux, Osteoarthritis (OA), Renal Disease, Thyroid Disorder Additional Past Medical History / Comment(s): L breast cancer with partial mastectomy, SSS, bronchitis, lower leg/pedal edema, CKD stage III, hyponatremia, Jiménez's esophagus, esophageal stricture, diverticulosis, benign colon polyps. History of Any Multi-Drug Resistant Organisms: None Reported Past Surgical History: Breast Surgery, Hysterectomy, Joint Replacement, Tonsillectomy Additional Past Surgical History / Comment(s): Bilateral hip arthroplasty, L breast biopsy, R breast partial mastectomy, EGD/foreign body removed, colonoscopy, bilateral cataract removals. Past Anesthesia/Blood Transfusion Reactions: No Reported Reaction Smoking Status: Never smoker - Past Family History Daughter(s) Family Medical History: Cancer Mother Family Medical History: Cancer Additional Family Medical History / Comment(s): Breast cancer with mastectomy Father Family Medical History: Cancer Additional Family Medical History / Comment(s): Father worked in [employer]. He had spider cancer. Medications and Allergies Home Medications Medication Instructions Recorded Confirmed Type Acetaminophen [Tylenol] 650 mg PO Q6H PRN 09/06/21 10/29/21 History Calcium Lactate 100mg 1 tab PO DAILY 09/06/21 10/29/21 History Omeprazole 20 mg PO DAILY 09/06/21 10/29/21 History Zinc Oxide [Desitin] 1 applic TOPICAL BID 09/06/21 10/29/21 History Levothyroxine Sodium 112 mcg PO DAILY #30 tablet 09/07/21 10/29/21 Rx Cefuroxime [Ceftin] 250 mg PO BID 10 Days #20 tab 11/03/21 Rx Furosemide [Lasix] 40 mg PO DAILY 30 Days #30 tab 11/03/21 Rx Lactulose [Cephulac] 20 gm PO DAILY PRN 30 Days #30 ml 11/03/21 Rx Melatonin 3 mg PO HS PRN tab 11/03/21 Rx Allergies Allergy/AdvReac Type Severity Reaction Status Date / Time No Known Allergies Allergy Verified 10/29/21 11:06 Physical Exam Vitals: Vital Signs Temp Pulse Resp BP Pulse Ox 10/31/21 08:00 98.5 F 78 16 147/73 94 L 10/31/21 02:00 98.2 F 80 16 125/71 92 L 10/30/21 20:00 80 10/30/21 18:53 98.5 F 69 16 152/69 96 10/30/21 14:00 98.4 F 77 18 122/80 95 Intake and Output 10/30/21 10/31/21 10/31/21 22:59 06:59 14:59 Intake Total 200 240 Balance 200 240 Intake: Oral 200 240 Other: # Voids 2 1 # Bowel Movements 1 GENERAL DESCRIPTION: An elderly female lying in bed, no distress. No tachypnea or accessory muscle of respiration use. HEENT: Shows Pallor , no scleral icterus. Oral mucous membrane is dry. No pharyngeal erythema or thrush NECK: Trachea central, no thyromegaly. LUNGS: Unlabored breathing. Decreased breath sounds at the bases. No wheeze or crackle. HEART: S1, S2, regular rate and rhythm. No loud murmur ABDOMEN: Soft, no tenderness , guarding or rigidity, no organomegaly EXTREMITIES: No edema of feet. SKIN: No rash, no masses palpable. NEUROLOGICAL: The patient is awake, alert, oriented x3, mood and affect normal. Results CBC & Chem 7: 11/02/21 06:21 11/02/21 06:21 Labs: Microbiology - Last 24 Hours (Table) 10/29/21 09:20 Blood Culture Gram Stain - Final Blood Blood Culture - Final Alpha Hemolytic Streptococcus Coagulase Negative Staph 10/29/21 09:20 Blood Culture - Final Blood Assessment and Plan (1) Pneumonia Status: Acute Code(s): J18.9 - PNEUMONIA, UNSPECIFIED ORGANISM SNOMED Code(s): 493010942 Plan: 1patient with a positive blood culture with coagulase-negative staph likely skin contaminant no need for further work-up for the same. 2patient with a alphahemolytic streptococcal bacteremia in this patient presented to hospital with cough yellow sputum and did have a fever right lower lobe infiltrate likely secondary to community-acquired pneumonia. 3we will obtain a sputum for gram stain culture, blood cultures will be repeated document clearance of bacteremia. 4discontinue vancomycin and restart the patient on Rocephin 2 g daily. We will follow on clinical condition and cultures to further adjust medication if needed Thank you for this consultation will follow this patient along with you Time with Patient: Greater than 30
[2021-11-01] MEDS: LEVOTHYROXINE 112 MCG TAB PO SCH (06:19)
[2021-11-01] MEDS ORDERED: VANCOMYCIN 1,500 MG in SODIUM CHLORIDE 0.9% 250 ML IVPB ONE (08:00)
[2021-11-01] MEDS: PANTOPRAZOLE 40 MG TABLET PO SCH (08:06)
[2021-11-01] MEDS: ENOXAPARIN 30 MG/0.3 ML SYRINGE SQ SCH (08:06)
[2021-11-01] MEDS: FUROSEMIDE 40 MG TAB PO SCH (08:06)
[2021-11-01] MEDS: ACETAMINOPHEN TAB 325 MG TAB PO PRN ×2 (08:07→20:43)
[2021-11-01] MEDS: ZINC OXIDE 20% OINT 28.4 GM TUBE TOPICAL SCH ×2 (08:09→22:47)
--- NOTE | 2021-11-01 17:49 | P.PN ---
Subjective Progress Note Date: 11/01/21 Principal diagnosis: Bacteremia and pneumonia Patient is 89 year old female presenting to the hospital with shortness of breath cough with some yellow sputum production in this patient who did have evidence of right lower lobe pneumonia he did have a positive blood culture with staph epi and alphahemolytic Streptococcus. On today's evaluation that is 11/01/2021, the patient denies having any fever or any chills, the patient is breathing comfortably on room air. Denies any chest pain she did have some cough with occasional sputum denies abdominal pain and no diarrhea Objective - Vital Signs Vital signs: Vital Signs Temp 98.8 F 11/01/21 14:00 Pulse 93 11/01/21 14:00 Resp 16 11/01/21 14:00 BP 128/72 11/01/21 14:00 Pulse Ox 96 11/01/21 14:00 FiO2 Intake & Output 10/31/21 11/01/21 11/01/21 18:59 06:59 18:59 Intake Total 240 Balance 240 Intake: Oral 240 Other: # Voids 3 1 - Exam GENERAL DESCRIPTION: An elderly female up in the chair no distress RESPIRATORY SYSTEM: Unlabored breathing , decreased breath sounds at bases HEART: S1 S2 regular rate and rhythm , ABDOMEN: Soft , no tenderness EXTREMITIES: No edema feet - Labs CBC & Chem 7: 10/30/21 06:36 10/30/21 06:36 Labs: Microbiology - Last 24 Hours (Table) 10/29/21 09:20 Blood Culture Gram Stain - Final Blood Blood Culture - Final Diphtheroid species 10/31/21 08:44 Blood Culture - Preliminary Blood No Growth after 24 hours 10/31/21 16:30 Gram Stain - Preliminary Sputum Sputum Culture - Preliminary Assessment and Plan (1) Pneumonia Current Visit: Yes Status: Acute Code(s): J18.9 - PNEUMONIA, UNSPECIFIED ORGANISM SNOMED Code(s): 075523029 Plan: 1patient with a positive blood culture with coagulase-negative staph likely skin contaminant no need for further work-up for the same. 2patient with a alphahemolytic streptococcal bacteremia in this patient presented to hospital with cough yellow sputum and did have a fever right lower lobe infiltrate likely secondary to community-acquired pneumonia. 3we will try to obtain a sputum for gram stain culture, blood cultures will be repeated document clearance of bacteremia. 4patient to continue with Rocephin 2 g daily , family the bedside questions were answered Time with Patient: Less than 30
--- NOTE | 2021-11-01 18:36 | PN ---
PROGRESS NOTE FOLLOW-UP NOTE: This 89-year-old lady was admitted to hospital yesterday and Cardiology was consulted because of an apparent ST-segment elevation noted on her EKG. An echocardiogram done on her showed normal LV function and normal wall motion. She has had a fairly uneventful night. At the time of my evaluation this morning, she is free of symptoms. On exam, vital signs are stable. Chest exam reveals good air entry bilaterally. Heart exam reveals first and second heart sounds, systolic murmur at the apex. Abdomen is soft. Examination of extremities reveals mild edema. Labs show a potassium of 4.1, creatinine is 1.4. Hemoglobin is 11.1. ASSESSMENT: Abnormal EKG. Echo looks normal. No other cardiac workup at this time. We will see the patient on a p.r.n. basis. MMROSA / IJN: [id number] /
--- NOTE | 2021-11-02 00:06 | PN ---
PROGRESS NOTE 89-year-old white female with bilateral pneumonia with bacteremia, having no chest pain, shortness of breath, up in bed eating. O2 96% on room air, blood pressure 128/72, temp 98.8, pulse 90 to 93, respiratory 16 to 18. Lungs: Scattered rhonchi and wheeze. Cardiovascular S1, S2. Hematology: Negative Homans. is normal. Cardiology has cleared her. Being treated for bilateral pneumonia with bacteremia. PROGNOSIS: Guarded. Continue broad-spectrum antibiotics per Dr. Contreras's recommendations. MMODL / IJN: [id number] /
[2021-11-02] MEDS: LEVOTHYROXINE 112 MCG TAB PO SCH (05:41)
[2021-11-02] MEDS: ENOXAPARIN 30 MG/0.3 ML SYRINGE SQ SCH (09:33)
[2021-11-02] MEDS: PANTOPRAZOLE 40 MG TABLET PO SCH (09:33)
[2021-11-02] MEDS: FUROSEMIDE 40 MG TAB PO SCH (09:33)
[2021-11-02 09:37] LABS: HCT 35.1 % (37.2-46.3); HGB 11.4 g/dL (12.0-15.0); MCH 29.3 pg (27.0-32.0); MCHC 32.5 g/dL (32.0-37.0); MCV 90.2 fL (80.0-97.0); Mean Platelet Volume 9.5 fL (9.5-12.2); NRBC Per 100 WBC 0 /100 WBCS (0.0-0.0); Platelet Count 314 X 10*3/uL (140-440); RBC 3.89 X 10*6/uL (4.10-5.20); RDW 13.8 % (11.5-14.5); WBC 7.28 X 10*3/uL (4.50-10.00)
[2021-11-02] MEDS: ACETAMINOPHEN TAB 325 MG TAB PO PRN (09:41)
[2021-11-02 09:43] LABS: Albumin 3.5 g/dL (3.8-4.9); Albumin/Globulin Ratio 1.14 (1.60-3.17); Anion Gap 15.8 mmol/L (10.00-18.00); BUN/Creat Ratio 12.39 Ratio (12.00-20.00); Blood Urea Nitrogen 20.2 mg/dL (9.0-27.0); Calcium 8.9 mg/dL (8.7-10.3); Globulin 3.1 g/dL (1.6-3.3); Non-African American GFR(CKD) 27.7 (60.0-200.0); Potassium 3.6 mmol/L (3.5-5.5); Total Bilirubin 0.4 mg/dL (0.30-1.20); Total Protein 6.6 g/dL (6.2-8.2)
[2021-11-02 10:29] LABS: Basophils # (M) 0.15 X 10*3/uL (0.00-0.10); Eosinophils # (M) 0.29 X 10*3/uL (0.04-0.35); Lymphocytes # (M) 0.58 X 10*3/uL (0.90-5.00); Metamyelocytes % 3 % (0-0); Monocytes # (M) 0.51 X 10*3/uL (0.20-1.00); Neutrophils # (M) 5.53 X 10*3/uL (2.00-8.90); Neutrophils % (M) 76 %
[2021-11-02] MEDS: ZINC OXIDE 20% OINT 28.4 GM TUBE TOPICAL SCH ×2 (10:57→22:44)
--- NOTE | 2021-11-02 17:39 | P.PN ---
Subjective Progress Note Date: 11/02/21 Principal diagnosis: Bacteremia and pneumonia Patient is 89 year old female presenting to the hospital with shortness of breath cough with some yellow sputum production in this patient who did have evidence of right lower lobe pneumonia he did have a positive blood culture with staph epi and alphahemolytic Streptococcus. On today's evaluation that is 11/02/2021, the patient remains to be afebrile, the patient is breathing comfortably on room air. The patient denies chest pain she did have some cough but not bringing up any sputum, no abdominal pain and no diarrhea Objective - Vital Signs Vital signs: Vital Signs Temp 98.3 F 11/02/21 14:00 Pulse 90 11/02/21 14:00 Resp 16 11/02/21 14:00 BP 145/79 11/02/21 14:00 Pulse Ox 95 11/02/21 14:00 FiO2 Intake & Output 11/01/21 11/02/21 11/02/21 18:59 06:59 18:59 Intake Total 360 Balance 360 Intake: Oral 360 Other: Voiding Method External Catheter Bedpan Diaper # Voids 7 2 1 # Bowel Movements 1 - Exam GENERAL DESCRIPTION: An elderly female up in the chair no distress RESPIRATORY SYSTEM: Unlabored breathing , decreased breath sounds at bases HEART: S1 S2 regular rate and rhythm , ABDOMEN: Soft , no tenderness EXTREMITIES: No edema feet - Labs CBC & Chem 7: 11/02/21 06:21 11/02/21 06:21 Labs: Abnormal Lab Results - Last 24 Hours (Table) 11/02/21 11/02/21 Range/Units 06:21 06:21 RBC 3.89 L (4.10-5.20) X 10*6/uL Hgb 11.4 L (12.0-15.0) g/dL Hct 35.1 L (37.2-46.3) % Metamyelocytes % 3 H (0-0) % Lymphocytes # (Manual) 0.58 L (0.90-5.00) X 10*3/uL Basophils # (Manual) 0.15 H (0.00-0.10) X 10*3/uL Creatinine 1.6 H (0.6-1.5) mg/dL Est GFR (CKD-EPI)AfAm 32.0 L (60.0-200.0) Est GFR (CKD-EPI)NonAf 27.7 L (60.0-200.0) Glucose 123 H (70-110) mg/dL AST 44 H (13-35) U/L Alkaline Phosphatase 192 H (41-126) U/L Albumin 3.5 L (3.8-4.9) g/dL Albumin/Globulin Ratio 1.14 L (1.60-3.17) g/dL Microbiology - Last 24 Hours (Table) 10/31/21 08:44 Blood Culture - Preliminary Blood No Growth after 48 hours Assessment and Plan (1) Pneumonia Current Visit: Yes Status: Acute Code(s): J18.9 - PNEUMONIA, UNSPECIFIED ORGANISM SNOMED Code(s): 703002932 Plan: 1patient with a positive blood culture with coagulase-negative staph likely skin contaminant no need for further work-up for the same. 2patient with a alphahemolytic streptococcal bacteremia in this patient presen ang to hospital with cough yellow sputum and did have a fever right lower lobe infiltrate likely secondary to community-acquired pneumonia. 3sputum culture so far pending. Blood cultures are negative 4patient patient has clinically improved with Rocephin 2 g daily which will be continued while waiting for the sputum culture finalized Time with Patient: Less than 30
[2021-11-03] MEDS: LEVOTHYROXINE 112 MCG TAB PO SCH (06:10)
[2021-11-03] MEDS: ENOXAPARIN 30 MG/0.3 ML SYRINGE SQ SCH (09:26)
[2021-11-03] MEDS: ZINC OXIDE 20% OINT 28.4 GM TUBE TOPICAL SCH (09:26)
[2021-11-03] MEDS: FUROSEMIDE 40 MG TAB PO SCH (09:26)
[2021-11-03] MEDS: PANTOPRAZOLE 40 MG TABLET PO SCH (09:26)
--- NOTE | 2021-11-03 12:28 | CDI ---
Documentation Clarification Form Date: 11/03/2021 12:12:30 PM From: Heidy Evans CCS, CCDS Admit Date: 10/29/2021 10:40:00 AM Patient Name: Denisha Arzate Visit Number: [id number] Discharge Date: ATTENTION: The Clinical Documentation Specialists (CDI) and [facility] Coding Staff appreciate your assistance in clarifying documentation. Please respond to the clarification below the line at the bottom and electronically sign. The CDI & [facility] Coding staff will review the response and follow-up if needed. Please note: Queries are made part of the Legal Health Record. If you have any questions, please contact the author of this message via ITS. Dr. Fredrick Petit: The patient presented with the following clinical indicators: SOB, Weakness, Altered mental status, productive cough and fever with elevated WBC on Day #2: 10.77. Additional clarification regarding the etiology/cause of the clinical indicators is requested. History/Risk Factors per the 10/29 H/P: CKD III, Dementia, Osteoporosis, Hypothyroid, Gait Dysfunction, lives in an Assisted Living Facility. Clinical Indicators: Presented to the ED on 10/29 via EMS from an [facility] with SOB, weakness, Altered mental status, fever and productive cough. Admit with Pneumonia and Hypoxia. 10/29 VS: T 99.1, 98.9, 102.8; P 85, R 16 (labored, cough, shallow), BP 126/67, PO 96 2Lnc, BMI: 37.5 10/29 LAB: WBC 8.2, Neut 6.4, Lymph 0.9, Lactic Acid 1.2 10/29 CXR: RLL infiltrate, correlate for Pneumonia. 10/30 VS: T 99, P 64, R 18, BP 105/51, PO 91 RA 10/30 LAB: WBC 10.77, Neut 7.98, Lymph 1.46 10/30 CXR: COPD and continued right basilar airspace disease/pneumonia. 10/29 Blood cultures x2 (Final): negative 10/29 Blood culture x1 (Final): Positive for Alpha Hemolytic Streptococcus, Coagulase negative Staph 10/29 Blood culture x1 (Final): Positive Diphtheroid species. 10/31 Blood culture (Preliminary): No growth @ 72 hrs. 10/31 Sputum culture (Final): negative Treatment 10/29: Telemetry, Fall precautions, O2, IV Azithromycin 500 m mls @ 250 mls/hr x1, IV Rocephin 2 gm: 50 mls @ 100 mls/hr x1 - q12H, IV Zofran 4 mg q8H/prn, Lovenox 30 mg Daily sq Infectious Disease Consult 10/31: Positive blood culture with coagulase-negative staph likely skin contaminant, no further workup. Alphahemolytic streptococcal bacteremia likely secondary to community acquired pneumonia. Ordered sputum culture & repeat blood cultures. In your professional opinion, please clarify if these findings signify one of the following conditions: [ ] Sepsis POA [ ] Sepsis, Not POA [ ] Severe Sepsis with organ failure [ ] Other, please specify [ ] Unable to determine (Template Last Reviewed: May 2020) DAIND
[2021-11-03 19:53] VITALS: BP 119/76; PULSE 80; RESP 16; TEMP 97.9
--- NOTE | 2021-11-11 21:41 | P.PN ---
Subjective Progress Note Date: 11/03/21 Principal diagnosis: Bacteremia and pneumonia Patient is 89 year old female presenting to the hospital with shortness of breath cough with some yellow sputum production in this patient who did have evidence of right lower lobe pneumonia he did have a positive blood culture with staph epi and alphahemolytic Streptococcus. On today's evaluation that is 11/03/2021, the patient continues to be afebrile, the patient is breathing comfortably on room air. The patient denies chest pain, the patient did have occasional cough but not bringing up any sputum, no abdominal pain and no diarrhea Objective - Vital Signs Vital signs: Vital Signs Temp 98.3 F 11/03/21 07:08 Pulse 65 11/03/21 07:08 Resp 19 11/03/21 07:08 BP 125/74 11/03/21 07:08 Pulse Ox 96 11/03/21 07:08 FiO2 Intake & Output 11/02/21 11/03/21 11/03/21 18:59 06:59 18:59 Other: Voiding Method Bedpan Diaper Diaper # Voids 7 2 # Bowel Movements 1 - Exam GENERAL DESCRIPTION: An elderly female up in the chair no distress RESPIRATORY SYSTEM: Unlabored breathing , decreased breath sounds at bases HEART: S1 S2 regular rate and rhythm , ABDOMEN: Soft , no tenderness EXTREMITIES: No edema feet - Labs CBC & Chem 7: 11/02/21 06:21 11/02/21 06:21 Labs: Microbiology - Last 24 Hours (Table) 10/31/21 16:30 Gram Stain - Final Sputum Sputum Culture - Preliminary 10/31/21 08:44 Blood Culture - Preliminary Blood No Growth after 72 hours Assessment and Plan (1) Pneumonia Status: Acute Code(s): J18.9 - PNEUMONIA, UNSPECIFIED ORGANISM SNOMED Code(s): 473165715 Plan: 1patient with a positive blood culture with coagulase-negative staph likely skin contaminant no need for further work-up for the same. 2patient with a alphahemolytic streptococcal bacteremia in this patient presented to hospital with cough yellow sputum and did have a fever right lower lobe infiltrate likely secondary to community-acquired pneumonia. 3sputum culture usual respiratory nevaeh. Repeat Blood cultures are negative 4patient patient has clinically improved with Rocephin 2 g daily with a plan to finish therapy with oral Ceftin and close outpatient follow-up Time with Patient: Less than 30
--- NOTE | 2021-11-17 08:53 | PN ---
PROGRESS NOTE DIAGNOSIS: Severe sepsis with organ failure. MMODL / IJN: [id number] /
== END 2021-11-04 01:03 | disposition home or self-care (01) | DRG 871 ==
LOC: EC 08:35 → 4SSUR 10:40
PROVIDERS: ADMIT Family Medicine; ATTEND Family Medicine
DX: A41.59 Other Gram-negative sepsis (principal); J18.9 Pneumonia, unspecified organism; J96.01 Acute respiratory failure with hypoxia; R65.20 Severe sepsis without septic shock; I48.91 Unspecified atrial fibrillation; E03.9 Hypothyroidism, unspecified; F03.90 Unspecified dementia, unspecified severity, without behavioral disturbance, psychotic disturbance, mood disturbance, and anxiety; I44.0 Atrioventricular block, first degree; I49.5 Sick sinus syndrome; I12.9 Hypertensive chronic kidney disease with stage 1 through stage 4 chronic kidney disease, or unspecified chronic kidney disease; K21.9 Gastro-esophageal reflux disease without esophagitis; R26.9 Unspecified abnormalities of gait and mobility; K22.70 Barrett's esophagus without dysplasia; M15.9 Polyosteoarthritis, unspecified; M81.0 Age-related osteoporosis without current pathological fracture; N18.30 Chronic kidney disease, stage 3 unspecified; N39.3 Stress incontinence (female) (male); Z20.822 Contact with and (suspected) exposure to COVID-19; Z66 Do not resuscitate; Z79.890 Hormone replacement therapy; Z85.3 Personal history of malignant neoplasm of breast; Z87.19 Personal history of other diseases of the digestive system; Z90.12 Acquired absence of left breast and nipple; Z79.899 Other long term (current) drug therapy
CPT/HCPCS: 36415; 71046; 80048; 80053; 83605; 83735; 83880; 84145; 84484; 85025; 87040; 87070; 87205; 87502; 87635; 93005; 93306; 94760; 96365; 96368; 99285

== ENCOUNTER 2021-12-16 09:11 | Observation (INO) | payer MEDICARE, OTHER ==
[2021-12-16 10:29] LABS: Basophils # (A) 0.1 k/uL (0-0.2); Basophils % (A) 1 %; Eosinophils # (A) 0.1 k/uL (0-0.7); Eosinophils % (A) 3 %; HCT 35.2 % (34.0-46.0); HGB 10.9 gm/dL (11.4-16.0); Lymphocytes # (A) 1.4 k/uL (1.0-4.8); Lymphocytes % (A) 28 %; MCH 29.1 pg (25.0-35.0); MCV 93.9 fL (80.0-100.0); Mean Platelet Volume 6.9; Monocytes # (A) 0.3 k/uL (0-1.0); Monocytes % (A) 6 %; Neutrophils # (A) 3.1 k/uL (1.3-7.7); Neutrophils % (A) 61 %; Platelet Count 297 k/uL (150-450); RBC 3.75 m/uL (3.80-5.40); RDW 14.6 % (11.5-15.5)
[2021-12-16 10:38] LABS: Calcium 8.3 mg/dL (8.4-10.2)
[2021-12-16] MEDS ORDERED: POTASSIUM CHLORIDE ER 20 MEQ TAB.ER PO STA (10:40)
--- NOTE | 2021-12-16 11:05 | XR ---
EXAMINATION TYPE: XR chest 2V DATE OF EXAM: 12/16/2021 COMPARISON: Chest x-ray October 30, 2021 HISTORY: Cough and COVID. TECHNIQUE: Frontal and lateral views of the chest are obtained. FINDINGS: There is chronic parenchymal change with right basilar opacity redemonstrated. The cardia c silhouette size remains enlarged. Left lung remains clear. No pleural effusion or pneumothorax se en bilaterally. The osseous structures remain demineralized. Degenerative change bilateral glenohumer al joints redemonstrated. IMPRESSION: Cardiomegaly with right basilar opacity redemonstrated could reflect recurrent acute inf iltrate on background parenchymal scarring.
--- NOTE | 2021-12-16 11:48 | ED ---
General Adult HPI - General Source: patient, EMS, RN notes reviewed, Caregiver Mode of arrival: EMS Limitations: altered mental status (Dementia) <Roldan Moore - Last Filed: 12/16/21 11:34> - History of Present Illness -: unknown Consistency: constant Improves with: none Worsens with: movement Associated Symptoms: malaise, weakness <Rusty Tompkins - Last Filed: 12/16/21 22:13> - General Chief complaint: Recheck/Abnormal Lab/Rx Stated complaint: COVID+ Time Seen by Provider: 12/16/21 09:15 - History of Present Illness Initial comments: 89-year-old female returns emergency Department via EMS from [facility] for COVID-19 positive. Patient states she has no major symptoms. She has no complete stop. Patient reports this a positive there's been no reports hypoxia. She does not report any nausea vomiting diarrhea constipation no body aches no leg pain specific complaints at this point. (Roldan Moore) This is an 89-year-old female presented with known coronavirus. She is a poor strain secondary dementia, she presented as coronavirus positive patient with herself not having any significant symptoms (Rusty Tompkins) - Related Data Home Medications Medication Instructions Recorded Confirmed Acetaminophen [Tylenol] 650 mg PO Q6H PRN 09/06/21 12/16/21 Omeprazole 20 mg PO DAILY 09/06/21 12/16/21 Calcium-Vit D3 600mg-125mcg 1 tab PO DAILY 12/16/21 12/16/21 Previous Rx's Medication Instructions Recorded Levothyroxine Sodium 112 mcg PO DAILY #30 tablet 09/07/21 Furosemide [Lasix] 40 mg PO DAILY 30 Days #30 tab 11/03/21 Nirmatrelvir/Ritonavir [Paxlovid 1 each PO BID #20 tab 12/16/21 150-100 mg Pack (Eua)] Allergies Allergy/AdvReac Type Severity Reaction Status Date / Time No Known Allergies Allergy Verified 12/16/21 11:49 Review of Systems ROS Other: All systems not noted in ROS Statement are negative. <Roldan Moore - Last Filed: 12/16/21 11:34> ROS Other: All systems not noted in ROS Statement are negative. <Rusty Tompkins - Last Filed: 12/16/21 22:13> ROS Statement: Those systems with pertinent positive or pertinent negative responses have been documented in the HPI. Past Medical History Past Medical History: Atrial Fibrillation, Cancer, Dementia, GERD/Reflux, Osteoarthritis (OA), Renal Disease, Thyroid Disorder Additional Past Medical History / Comment(s): L breast cancer with partial mastectomy, SSS, bronchitis, lower leg/pedal edema, CKD stage III, hyponatremia, Jiménez's esophagus, esophageal stricture, diverticulosis, benign colon polyps. History of Any Multi-Drug Resistant Organisms: None Reported Past Surgical History: Breast Surgery, Hysterectomy, Joint Replacement, Tonsillectomy Additional Past Surgical History / Comment(s): Bilateral hip arthroplasty, L breast biopsy, R breast partial mastectomy, EGD/foreign body removed, colonoscopy, bilateral cataract removals. Past Anesthesia/Blood Transfusion Reactions: No Reported Reaction Past Psychological History: No Psychological Hx Reported Smoking Status: Never smoker Past Alcohol Use History: None Reported Past Drug Use History: None Reported - Past Family History Daughter(s) Family Medical History: Cancer Mother Family Medical History: Cancer Additional Family Medical History / Comment(s): Breast cancer with mastectomy Father Family Medical History: Cancer Additional Family Medical History / Comment(s): Father worked in [employer]. He had spider cancer. <Roldan Moore - Last Filed: 12/16/21 11:34> General Exam Limitations: no limitations General appearance: alert, in no apparent distress Head exam: Present: atraumatic, normocephalic, normal inspection Eye exam: Present: normal appearance, PERRL, EOMI. Absent: scleral icterus, conjunctival injection, periorbital swelling ENT exam: Present: normal exam, normal oropharynx, mucous membranes moist Neck exam: Present: normal inspection. Absent: tenderness, meningismus, lymphadenopathy Respiratory exam: Present: rhonchi Cardiovascular Exam: Present: regular rate, normal rhythm, normal heart sounds. Absent: systolic murmur, diastolic murmur, rubs, gallop, clicks GI/Abdominal exam: Present: soft, normal bowel sounds. Absent: distended, tenderness, guarding, rebound, rigid Neurological exam: Present: alert Skin exam: Present: warm, dry, intact, normal color. Absent: rash <Roldan Moore - Last Filed: 12/16/21 11:34> Limitations: altered mental status, physical limitation General appearance: alert, in no apparent distress Head exam: Present: atraumatic, normocephalic, normal inspection Eye exam: Present: normal appearance, PERRL, EOMI. Absent: scleral icterus, conjunctival injection, periorbital swelling ENT exam: Present: normal exam, mucous membranes moist Neck exam: Present: normal inspection. Absent: tenderness, meningismus, lymphadenopathy Respiratory exam: Present: normal lung sounds bilaterally. Absent: respiratory distress, wheezes, rales, rhonchi, stridor Cardiovascular Exam: Present: regular rate, normal rhythm, normal heart sounds. Absent: systolic murmur, diastolic murmur, rubs, gallop, clicks GI/Abdominal exam: Present: soft, normal bowel sounds. Absent: distended, tenderness, guarding, rebound, rigid Extremities exam: Present: normal inspection, full ROM, normal capillary refill. Absent: tenderness, pedal edema, joint swelling, calf tenderness Back exam: Present: normal inspection Neurological exam: Present: alert, oriented X3, CN II-XII intact Psychiatric exam: Present: normal affect, normal mood Skin exam: Present: warm, dry, intact, normal color. Absent: rash <Rusty Tompkins - Last Filed: 12/16/21 22:13> Course <Rusty Tompkins - Last Filed: 12/16/21 22:13> Vital Signs 12/16/21 12/16/21 12/16/21 09:18 09:22 22:00 Temperature 98.4 F Pulse Rate 61 76 Respiratory 22 20 18 Rate Blood Pressure 119/88 106/72 O2 Sat by Pulse 96 92 L Oximetry - Reevaluation(s) Reevaluation #1: 12/16/21 22:10 Medical records reviewed (Rusty Tompkins) Reevaluation #2: 12/16/21 22:10 Patient is not not allowed back Facility secondary to being positive for coronavirus. Patient will be placed in observation until she gets acceptance back to facility where she came from (Rusty Tompkins) - Consultations Consultation #1: Spoke with sound physicians who agree to admit this patient (Rusty Tompkins) Medical Decision Making - Lab Data Result diagrams: 12/16/21 09:43 12/16/21 09:43 <Roldan Moore - Last Filed: 12/16/21 11:34> - Lab Data Result diagrams: 12/16/21 09:43 12/16/21 09:43 - Radiology Data Radiology results: report reviewed (Chest x-ray positive for some altered guarding possible new infiltrate), image reviewed <Rusty Tompkins - Last Filed: 12/16/21 22:13> - Medical Decision Making Patient positive, test at [facility]. X-ray shows old area of scarring. Laboratory a month hypokalemia patient be discharged on Paxlovid (Roldan Moore) 89 female DF for evaluation of positive coronavirus. Patient had an outpatient test at [facility]. Patient also has a mild hypokalemia which is replaced here in the ER x-ray shows some old scarring may be a mild pneumonia although patient has no current fever no currently, will hold treatment (Rusty Tompkins) - Lab Data Lab Results 12/16/21 12/16/21 Range/Units 09:43 09:43 WBC 5.0 (3.8-10.6) k/uL RBC 3.75 L (3.80-5.40) m/uL Hgb 10.9 L (11.4-16.0) gm/dL Hct 35.2 (34.0-46.0) % MCV 93.9 (80.0-100.0) fL MCH 29.1 (25.0-35.0) pg MCHC 31.0 (31.0-37.0) g/dL RDW 14.6 (11.5-15.5) % Plt Count 297 (150-450) k/uL MPV 6.9 Neutrophils % 61 % Lymphocytes % 28 % Monocytes % 6 % Eosinophils % 3 % Basophils % 1 % Neutrophils # 3.1 (1.3-7.7) k/uL Lymphocytes # 1.4 (1.0-4.8) k/uL Monocytes # 0.3 (0-1.0) k/uL Eosinophils # 0.1 (0-0.7) k/uL Basophils # 0.1 (0-0.2) k/uL Sodium 137 (137-145) mmol/L Potassium 3.0 L (3.5-5.1) mmol/L Chloride 95 L (98-107) mmol/L Carbon Dioxide 31 H (22-30) mmol/L Anion Gap 11 mmol/L BUN 19 H (7-17) mg/dL Creatinine 1.30 H (0.52-1.04) mg/dL Est GFR (CKD-EPI)AfAm 42 (>60 ml/min/1.73 sqM) Est GFR (CKD-EPI)NonAf 37 (>60 ml/min/1.73 sqM) Glucose 98 (74-99) mg/dL Calcium 8.3 L (8.4-10.2) mg/dL Disposition Is patient prescribed a controlled substance at d/c from ED?: No Time of Disposition: 11:53 <Roldan Moore - Last Filed: 12/16/21 11:34> Is patient prescribed a controlled substance at d/c from ED?: No Time of Disposition: 22:55 <Rusty Tompkins - Last Filed: 12/16/21 22:13> Clinical Impression: COVID-19, Coronavirus infection, Dementia Disposition: ADMITTED IP TO THIS HOSP Condition: Stable Instructions (If sedation given, give patient instructions): COVID-19 (Coronavirus Disease 2019) (ED) Additional Instructions: Please return to the Emergency Department if symptoms worsen or any other concerns. Prescriptions: Nirmatrelvir/Ritonavir [Paxlovid 150-100 mg Pack (Eua)] 1 each PO BID #20 tab Referrals: GARY BENNETT MD [Primary Care Provider] - 1-2 days
[2021-12-16] MEDS ORDERED: NALOXONE 0.4 MG/ML 1 ML VIAL IV PRN (22:06)
[2021-12-16] MEDS ORDERED: MORPHINE SULFATE 4 MG/ML SYRINGE IV PRN (22:06)
[2021-12-16] MEDS ORDERED: ONDANSETRON 4 MG/2 ML VIAL IVP PRN (22:06)
[2021-12-16] MEDS ORDERED: POTASSIUM BICARBONATE/CIT AC 20 MEQ TABLET.EFF PO ONE (22:08)
[2021-12-16] MEDS: SODIUM CHLORIDE 0.9% 1,000 ML IV SCH (22:45)
[2021-12-17] MEDS ORDERED: ACETAMINOPHEN TAB 325 MG TAB PO PRN (05:09)
--- NOTE | 2021-12-17 05:20 | P.HPIM ---
History of Present Illness H&P Date: 12/16/21 Chief Complaint: Covid positive 89-year-old female with dementia Patient is a [facility] resident she had an outpatient testing done which was positive for Covid for which she was sent to our hospital for evaluation. Patient unable to provide any meaningful history due to dementia. However she denies any medical concerns she denies any complaints at this time. There is no report of any fevers or chills no chest pain or trouble breathing no nausea vomiting no abdominal pain no coughing no runny nose no sore throat no body aches. Patient denies any GI bleeding or changes in her bowel or urinary habits Covid testing was confirmed to be positive and or hospital[facility] her back due to Covid positive Patient was admitted for observation Chest x-ray showing old scarring Blood work showed mild hypokalemia replaced in the ED CK D stable Chronic anemia Review of Systems Pertinent positives as noted in HPI. All other systems were reviewed and are negative Past Medical History Past Medical History: Atrial Fibrillation, Cancer, Dementia, GERD/Reflux, Osteoarthritis (OA), Renal Disease, Thyroid Disorder Additional Past Medical History / Comment(s): L breast cancer with partial mastectomy, SSS, bronchitis, lower leg/pedal edema, CKD stage III, hyponatremia, Jiménez's esophagus, esophageal stricture, diverticulosis, benign colon polyps. History of Any Multi-Drug Resistant Organisms: None Reported Past Surgical History: Breast Surgery, Hysterectomy, Joint Replacement, Tonsillectomy Additional Past Surgical History / Comment(s): Bilateral hip arthroplasty, L breast biopsy, R breast partial mastectomy, EGD/foreign body removed, colonoscopy, bilateral cataract removals. Past Anesthesia/Blood Transfusion Reactions: No Reported Reaction Past Psychological History: No Psychological Hx Reported Smoking Status: Never smoker Past Alcohol Use History: None Reported Past Drug Use History: None Reported - Past Family History Daughter(s) Family Medical History: Cancer Mother Family Medical History: Cancer Additional Family Medical History / Comment(s): Breast cancer with mastectomy Father Family Medical History: Cancer Additional Family Medical History / Comment(s): Father worked in [employer]. He had spider cancer. Medications and Allergies Home Medications Medication Instructions Recorded Confirmed Type Acetaminophen [Tylenol] 650 mg PO Q6H PRN 09/06/21 12/16/21 History Omeprazole 20 mg PO DAILY 09/06/21 12/16/21 History Levothyroxine Sodium 112 mcg PO DAILY #30 tablet 09/07/21 12/16/21 Rx Furosemide [Lasix] 40 mg PO DAILY 30 Days #30 tab 11/03/21 12/16/21 Rx Calcium-Vit D3 600mg-125mcg 1 tab PO DAILY 12/16/21 12/16/21 History Nirmatrelvir/Ritonavir [Paxlovid 1 each PO BID #20 tab 12/16/21 Rx 150-100 mg Pack (Eua)] Allergies Allergy/AdvReac Type Severity Reaction Status Date / Time No Known Allergies Allergy Verified 12/16/21 11:49 Physical Exam Vitals: Vital Signs Temp Pulse Resp BP Pulse Ox 12/16/21 22:00 76 18 106/72 92 L 12/16/21 09:22 20 12/16/21 09:18 98.4 F 61 22 119/88 96 Intake and Output 12/16/21 12/16/21 12/16/21 06:59 14:59 22:59 Other: Weight 88.451 kg ExamConstitutional: No acute distress, cooperative Eyes: Anicteric sclerae, moist conjunctiva, Pupils equal round reactive to light ENMT: NC/AT Oropharynx clear, no erythema, or exudates Neck: Supple, no masses, or JVD No carotid bruits No thyromegaly Lungs: Clear to auscultation Clear to percussion Normal respiratory effort, no accessory muscle use Cardiovascular: Heart regular in rate and rhythm, No murmurs, gallops, or rubs No peripheral edema Abdominal: Soft Nontender, no guarding, rebound or rigidity Abdomen moving with respiration Normoactive bowel sounds No hepatomegaly, No splenomegaly No palpable mass No abdominal wall hernia noted Skin: Normal temperature, tone, texture, turgor No induration No subcutaneous nodules No rash, lesions No ulcers Extremities: No digital cyanosis No clubbing Pedal pulses intact and symmetrical Radial pulses intact and symmetrical No calf tenderness Psychiatric: Alert and oriented to person only Neuro Muscles Strength 4/5 in all 4 extremities Sensation to light touch grossly present throughout Was difficult to perform cranial nerve exam patient difficult to expla in complex commands Lymphatics: no palpable cervical or supraclavicular , or inguinal lymph nodes Results CBC & Chem 7: 12/16/21 09:43 12/16/21 09:43 Labs: Abnormal Lab Results - Last 24 Hours (Table) 12/16/21 12/16/21 Range/Units 09:43 09:43 RBC 3.75 L (3.80-5.40) m/uL Hgb 10.9 L (11.4-16.0) gm/dL Potassium 3.0 L (3.5-5.1) mmol/L Chloride 95 L (98-107) mmol/L Carbon Dioxide 31 H (22-30) mmol/L BUN 19 H (7-17) mg/dL Creatinine 1.30 H (0.52-1.04) mg/dL Calcium 8.3 L (8.4-10.2) mg/dL Assessment and Plan Assessment: Covid positive asymptomatic prison resident due to dementia Hypokalemia mild replaced follow-up levels Chronic anemia stable denies GI bleeding CK D stage III stable Hypothyroid Plan Supportive care Supplemental oxygen as needed Due to prophylaxis Lovenox subcu Pulmonary consult Fall precautions Monitor vital signs Tylenol for fever Resume levothyroxine Follow-up potassium level Full code DVT prophylaxis Lovenox subcu
[2021-12-17] MEDS ORDERED: LEVOTHYROXINE 112 MCG TAB PO SCH (06:30)
[2021-12-17 07:16] LABS: Basophils % (A) 1 %; Eosinophils # (A) 0.1 k/uL (0-0.7); Eosinophils % (A) 1 %; HCT 37.7 % (34.0-46.0); HGB 11.5 gm/dL (11.4-16.0); Hypochromasia Slight; Lymphocytes # (A) 1.3 k/uL (1.0-4.8); Lymphocytes % (A) 25 %; MCHC 30.6 g/dL (31.0-37.0); MCV 94.6 fL (80.0-100.0); Mean Platelet Volume 7.2; Monocytes # (A) 0.3 k/uL (0-1.0); Monocytes % (A) 5 %; Neutrophils # (A) 3.6 k/uL (1.3-7.7); Neutrophils % (A) 68 %; Platelet Count 289 k/uL (150-450); RBC 3.98 m/uL (3.80-5.40); RDW 14.8 % (11.5-15.5); WBC 5.4 k/uL (3.8-10.6)
[2021-12-17 07:29] LABS: Albumin 3.7 g/dL (3.5-5.0); Calcium 8.7 mg/dL (8.4-10.2); Magnesium 1.5 mg/dL (1.6-2.3); Total Bilirubin 0.7 mg/dL (0.2-1.3); Total Protein 6.9 g/dL (6.3-8.2)
[2021-12-17] MEDS ORDERED: PANTOPRAZOLE 40 MG TABLET PO SCH (07:30)
[2021-12-17 08:03] LABS: Potassium 4.4 mmol/L (3.5-5.1)
[2021-12-17 08:12] VITALS: BP 134/69; PULSE 68; RESP 20; TEMP 97.6
[2021-12-17 08:52] LABS: C Reactive Protein 1.1 mg/dL (<1.0)
[2021-12-17] MEDS ORDERED: CALCIUM CARB-VIT D 500 MG-5 MCG TAB PO SCH (09:00)
[2021-12-17] MEDS ORDERED: FUROSEMIDE 40 MG TAB PO SCH (09:00)
[2021-12-17] MEDS ORDERED: ENOXAPARIN 40 MG/0.4 ML SYRINGE SQ SCH (09:00)
[2021-12-17] MEDS: SODIUM CHLORIDE 0.9% 1,000 ML IV SCH (11:02)
--- NOTE | 2021-12-17 11:04 | P.CNPUL ---
History of Present Illness Consult date: 12/17/21 Requesting physician: Cory Martin Reason for consult: other (COVID-19 infection) Chief complaint: COVID-19 infection History of present illness: This is an 89-year-old female patient with history of dementia, hypothyroidism, acid reflux disease who resides at an adult foster care setting. She and other residents apparently had tested positive for COVID-19 and she was brought here to the emergency room for the same. She has no complaints herself. No shortness of breath. No cough or congestion. She is maintaining O2 saturations in the mid 90s on room air. She's been afebrile. Hemodynamically stable. Chest x-ray revealed cardiomegaly with right basilar opacity likely parenchymal scarring. White count 5.4. Hemoglobin 11.5. Sodium 141. Potassium 4.4. BUN 19. Creatinine 1.39. AST 25. ALT 8. Glucose 109. LDH 408. C-reactive protein 1.1. Troponin negative 1. Pro-calcitonin 0.0. Leukocytes and 1.3. She was initiated on Lovenox for DVT prophylaxis. She is seen today in consultation in the emergency room. She is currently sitting up in chair. Awake and alert in no acute distress. Remains on room air oxygen. Review of Systems REVIEW OF SYSTEMS: CONSTITUTIONAL: Denies any recent significant weight loss or weight gain. EYES: Denies change in vision. EARS, NOSE, MOUTH, THROAT: Denies headaches, denies sore throat. CARDIOVASCULAR: Denies chest pain, palpitations or syncopal episodes. RESPIRATORY: Denies shortness of breath, cough, congestion or hemoptysis. GASTROINTESTINAL: Denies change in appetite, denies abdominal pain GENITOURINARY: Denies hematuria, denies infections. MUSKULOSKELETAL: Denies pain, denies swelling. INTEGUMENTARY: Denies rash, denies eczema. NEUROLOGICAL: Denies recent memory loss, no recent seizure activity. PSYCHIATRIC: Denies anxiety, denies depression. HEMATOLOGIC/LYMPHATIC: Denies anemia, denies enlarged lymph nodes. Past Medical History Past Medical History: Atrial Fibrillation, Cancer, Dementia, GERD/Reflux, Osteoarthritis (OA), Renal Disease, Thyroid Disorder Additional Past Medical History / Comment(s): L breast cancer with partial mastectomy, SSS, bronchitis, lower leg/pedal edema, CKD stage III, hyponatremia, Jiménez's esophagus, esophageal stricture, diverticulosis, benign colon polyps. History of Any Multi-Drug Resistant Organisms: None Reported Past Surgical History: Breast Surgery, Hysterectomy, Joint Replacement, Tonsillectomy Additional Past Surgical History / Comment(s): Bilateral hip arthroplasty, L breast biopsy, R breast partial mastectomy, EGD/foreign body removed, colonoscopy, bilateral cataract removals. Past Anesthesia/Blood Transfusion Reactions: No Reported Reaction Past Psychological History: No Psychological Hx Reported Smoking Status: Never smoker Past Alcohol Use History: None Reported Past Drug Use History: None Reported - Past Family History Daughter(s) Family Medical History: Cancer Mother Family Medical History: Cancer Additional Family Medical History / Comment(s): Breast cancer with mastectomy Father Family Medical History: Cancer Additional Family Medical History / Comment(s): Father worked in [place]. He had spider cancer. Medications and Allergies Home Medications Medication Instructions Recorded Confirmed Type Acetaminophen [Tylenol] 650 mg PO Q6H PRN 09/06/21 12/16/21 History Omeprazole 20 mg PO DAILY 09/06/21 12/16/21 History Levothyroxine Sodium 112 mcg PO DAILY #30 tablet 09/07/21 12/16/21 Rx Furosemide [Lasix] 40 mg PO DAILY 30 Days #30 tab 11/03/21 12/16/21 Rx Calcium-Vit D3 600mg-125mcg 1 tab PO DAILY 12/16/21 12/16/21 History Nirmatrelvir/Ritonavir [Paxlovid 1 each PO BID #20 tab 12/16/21 Rx 150-100 mg Pack (Eua)] Allergies Allergy/AdvReac Type Severity Reaction Status Date / Time No Known Allergies Allergy Verified 12/16/21 11:49 Physical Exam Vitals: Vital Signs Temp Pulse Pulse Resp BP BP Pulse Ox 12/17/21 08:06 97.6 F 68 20 134/69 95 12/16/21 22:00 76 18 106/72 92 L Intake and Output 12/16/21 12/17/21 12/17/21 22:59 06:59 14:59 Other: Voiding Method Bedside Commode Diaper GENERAL EXAM: Alert, 89-year-old female, anemia, comfortable in no apparent distress. HEAD: Normocephalic. EYES: Normal reaction of pupils, equal size. NOSE: Clear with pink turbinates. THROAT: No erythema or exudates. NECK: No masses, no JVD. CHEST: No chest wall deformity. LUNGS: Equal air entry with no crackles, wheeze, rhonchi or dullness. CVS: S1 and S2 normal with no audible murmur, regular rhythm. ABDOMEN: No hepatosplenomegaly, normal bowel sounds, no guarding or rigidity. SPINE: No scoliosis or deformity SKIN: No rashes CENTRAL NERVOUS SYSTEM: No focal deficits, tone is normal in all 4 extremities. EXTREMITIES: There is no peripheral edema. No clubbing, no cyanosis. Peripheral pulses are intact. Results - Laboratory Findings CBC and BMP: 12/17/21 05:31 12/17/21 05:31 PT/INR, D-dimer D-Dimer 1.12 mg/L FEU (<0.60) H 12/17/21 05:31 Abnormal lab findings: Abnormal Labs 12/16/21 12/16/21 12/16/21 09:43 09:43 22:48 RBC 3.75 L Hgb 10.9 L MCHC D-Dimer Potassium 3.0 L Chloride 95 L Carbon Dioxide 31 H BUN 19 H Creatinine 1.30 H Glucose Calcium 8.3 L Magnesium Alkaline Phosphatase C-Reactive Protein 1.0 H Procalcitonin Coronavirus (PCR) 12/16/21 12/16/21 12/17/21 22:48 22:48 05:31 RBC Hgb MCHC 30.6 L D-Dimer Potassium Chloride Carbon Dioxide BUN Creatinine Glucose Calcium Magnesium Alkaline Phosphatase C-Reactive Protein Procalcitonin 0.30 H Coronavirus (PCR) Detected A 12/17/21 12/17/21 05:31 05:31 RBC Hgb MCHC D-Dimer 1.12 H Potassium Chloride 94 L Carbon Dioxide 37 H BUN 19 H Creatinine 1.39 H Glucose 109 H Calcium Magnesium 1.5 L Alkaline Phosphatase 148 H C-Reactive Protein 1.1 H Procalcitonin Coronavirus (PCR) - Diagnostic Findings Chest x-ray: image reviewed Assessment and Plan Assessment: COVID-19 infection. No pulmonary symptoms. On room air. History of dementia, resides in adult foster care Chronic anemia Chronic kidney disease stage III Hypothyroidism History of breast cancer with partial mastectomy Nonsmoker Plan: The patient was seen and evaluated Chest x-ray, labs and medications reviewed Stable for discharge from pulmonary standpoint Could receive treatment with Paxlovid I have personally seen and examined the patient, performed the documentation and the assessment and plan as written. Number of minutes spent on the visit: 20.
--- NOTE | 2021-12-17 12:55 | P.DS ---
Providers Date of admission: 12/16/21 22:06 Expected date of discharge: 12/17/21 Attending physician: Cory Martin MD Consults: 12/17/21 05:09 Consult Physician Routine Consulting Provider: Trevin Jiménez Consult Reason/Comments: covid Do you want consulting provider notified?: Yes, Notify in am Primary care physician: GARY BENNETT MD Hospital Course: Covid positive Dementia Hypokalemia Chronic anemia CK D stage III Hypothyroid 89-year-old female with dementia who is a retirement resident had an outpatient testing done which was positive for Covid for which she was sent to our hospital for evaluation. Covid testing was confirmed to be positive in our hospital. Patient was admitted for observation. Chest x-ray showed old scarring. Blood work showed mild hypokalemia, replaced in the ED. CKD, chronic anemia were stable. Patient was seen by pulmonology and cleared for discharge with Paxlovid course. Gen: awake, alert HEENT: normocephalic, atraumatic, good hearing acuity, moist mucous membranes Resp: good air exchange, breathing comfortably with no accessory muscle use CVS: good distal perfusion x 4, GI: soft, NTTP, ND : no SPT, no CVAT, mckeon catheter not present MSK: no pitting edema, no clubbing Neuro: non-focal, moving all extremities Psych: cooperative, euthymic mood Patient Condition at Discharge: Stable Plan - Discharge Summary New Discharge Prescriptions: New Nirmatrelvir/Ritonavir [Paxlovid 150-100 mg Pack (Eua)] 1 each PO BID #20 tab Continue Omeprazole 20 mg PO DAILY Acetaminophen [Tylenol] 650 mg PO Q6H PRN PRN Reason: Pain Levothyroxine Sodium 112 mcg PO DAILY #30 tablet Furosemide [Lasix] 40 mg PO DAILY 30 Days #30 tab Calcium-Vit D3 600mg-125mcg 1 tab PO DAILY Discharge Medication List Acetaminophen [Tylenol] 650 mg PO Q6H PRN 09/06/21 [History] Omeprazole 20 mg PO DAILY 09/06/21 [History] Levothyroxine Sodium 112 mcg PO DAILY #30 tablet 09/07/21 [Rx] Furosemide [Lasix] 40 mg PO DAILY 30 Days #30 tab 11/03/21 [Rx] Calcium-Vit D3 600mg-125mcg 1 tab PO DAILY 12/16/21 [History] Nirmatrelvir/Ritonavir [Paxlovid 150-100 mg Pack (Eua)] 1 each PO BID #20 tab 12/16/21 [Rx] Follow up Appointment(s)/Referral(s): GARY BENNETT MD [Primary Care Provider] - 1-2 days Patient Instructions/Handouts: COVID-19 (Coronavirus Disease 2019) (ED) Activity/Diet/Wound Care/Special Instructions: Please return to the Emergency Department if symptoms worsen or any other concerns.
[2021-12-18] MEDS ORDERED: ENOXAPARIN 30 MG/0.3 ML SYRINGE SQ SCH (09:00)
== END 2021-12-17 16:09 | disposition home or self-care (01) ==
LOC: EC 09:11 → 4SSUR 22:06
PROVIDERS: ADMIT Internal Medicine; ATTEND Internal Medicine
DX: U07.1 COVID-19 (principal); F03.90 Unspecified dementia, unspecified severity, without behavioral disturbance, psychotic disturbance, mood disturbance, and anxiety; E87.6 Hypokalemia; I48.91 Unspecified atrial fibrillation; N18.30 Chronic kidney disease, stage 3 unspecified; E03.9 Hypothyroidism, unspecified; K22.70 Barrett's esophagus without dysplasia; I49.5 Sick sinus syndrome; K57.90 Diverticulosis of intestine, part unspecified, without perforation or abscess without bleeding; K21.9 Gastro-esophageal reflux disease without esophagitis; M19.90 Unspecified osteoarthritis, unspecified site; D64.9 Anemia, unspecified; I51.7 Cardiomegaly; Z79.890 Hormone replacement therapy; Z79.899 Other long term (current) drug therapy; Z96.643 Presence of artificial hip joint, bilateral; Z86.010 Personal history of colon polyps; Z85.3 Personal history of malignant neoplasm of breast; Z98.42 Cataract extraction status, left eye; Z98.41 Cataract extraction status, right eye; Z90.710 Acquired absence of both cervix and uterus; Z90.12 Acquired absence of left breast and nipple; Z87.19 Personal history of other diseases of the digestive system; Z98.890 Other specified postprocedural states; Z80.3 Family history of malignant neoplasm of breast
CPT/HCPCS: 96372; 99285; 36415; 85379; 83880; 80053; 80048; 82728; 83615 ×2; 83735; 84484; 85025 ×2; 85384; 86140 ×2; 87040; 84145; 87635; 71046; G0378 ×2; J1650